=== PATIENT | female | born 1935 | race Caucasian/White ===

== ENCOUNTER 2017-11-05 12:02 | Inpatient (IN) | payer MEDICARE, OTHER, SELFPAY ==
[2017-11-05] VITALS (19 sets, daily range): BP systolic 112–179; BP diastolic 58–113; PULSE 59–88; RESP 14–20; TEMP 36.2–37.1; O2SAT 92–100; BMI 21.6
--- NOTE | 2017-11-05 12:54 | PC.NURSE ---
Pt has significant bruising to L posterior especially behind knee and thigh. LE, Left lateral thigh is warm and hard and very tender to light touch. Pt's daughter states swelling to extremety is unchanged since visit to the ER.
--- NOTE | 2017-11-05 12:57 | ED.LOWEXIN ---
HPI - Extremity Injury (Lower) <IBAN Carey - Last Filed: 11/05/17 22:51> General Chief Complaint: Extremity Injury, Lower Stated Complaint: STATES CELLULITIS LEFT THIGH Time Seen by Provider: 11/05/17 12:56 History of Present Illness HPI Narrative: 82-year-old female here for complaint of pain into her left thigh area over the past 6 days approximately. She was seen and emergency room at last week for same symptoms and was diagnosed with cellulitis. Ultrasound was obtained of the lower extremity at that visit and was negative for DVT. She has been taking Keflex as prescribed for the cellulitis. She is back to the emergency room today as symptoms have not resolved and increasing pain into the left thigh area over the past 24 hr. No known trauma to the left thigh. Increased pain with motion and palpation of the left thigh. They do report having some bruising to the left thigh. Patient does take Coumadin due to a history of atrial fibrillation. She states that her INR is normally around 3 which is therapeutic for her. She denies any shortness of breath no chest pain. No other concerns or complaints. Related Data Home Medications Medication Instructions Recorded Confirmed atorvastatin 20 mg PO QPM 11/05/17 11/05/17 cephalexin 500 mg PO QID 11/05/17 11/05/17 hydrocodone-acetaminophen 1 tab PO Q6H PRN 11/05/17 11/05/17 sertraline 100 mg PO QPM 11/05/17 11/05/17 warfarin [Jantoven] 2.5 mg PO QPM 11/05/17 11/05/17 Allergies Allergy/AdvReac Type Severity Reaction Status Date / Time diltiazem [DILTIAZEM] Allergy Severe Rash Verified 11/05/17 12:21 Review of Systems <IBAN Carey - Last Filed: 11/05/17 22:51> Constitutional Denies chills, Denies fever(s), Denies lethargy and Denies weakness Eyes Denies change in vision, Denies eye discharge, Denies irritation and Denies loss of vision ENT Ears, Nose, Mouth, and Throat: Denies change in voice, Denies neck pain and Denies sore throat Cardiovascular Denies chest pain, Denies irregular heart rhythm, Denies lightheadedness, Denies palpitations, Denies dyspnea, Denies dyspnea on exertion and Denies orthopnea Respiratory Denies cough, Denies dyspnea, Denies dyspnea on exertion and Denies wheezing Gastrointestinal Gastrointestinal: Denies abdominal pain, Denies change in bowel habits, Denies diarrhea, Denies nausea and Denies vomiting Genitourinary Denies hematuria, Denies flank pain, Denies urinary incontinence and Denies urinary urgency Musculoskeletal Denies neck pain Comments: Left thigh pain and bruising Integumentary/Breasts Denies pruritus, Denies erythema, Denies rash and Denies wounds Neurologic Denies confusion, Denies loss of vision and Denies weakness Psychiatric Denies anxiety, Denies confusion, Denies depression, Denies homicidal ideation and Denies suicidal ideation Endocrine Denies palpitations Hematologic/Lymphatic Denies easy bruising Allergic/Immunologic Denies wheezing Exam <IBAN Carey - Last Filed: 11/05/17 22:51> Initial Vital Signs Initial Vital Signs: Vital Signs Pulse Rate 59 L 11/05/17 12:21 Respiratory Rate 16 11/05/17 12:21 Blood Pressure 112/58 L 11/05/17 12:21 Pulse Oximetry 95 11/05/17 12:21 Const General: cooperative and well developed Nutritional Appearance: well nourished Orientation: alert, awake and not confused [facility] Mouth: oral mucosae normal and oropharynx normal Eyes General: appearance normal, both eyes and all related structures Conjunctivae: conjunctivae normal Sclera: sclerae normal Pupils: PERRL Resp Effort & Inspection: normal respiratory effort, able to speak in complete sentences, no respiratory distress and no use of accessory muscles Auscultation: clear to auscultation bilaterally, no rales, no rhonchi and no wheezes Cardio Rate: regular rate Rhythm: regular rhythm Heart Sounds: no click, no gallops, no murmurs and no rubs Pulses: normal peripheral pulses Skin General: no rashes or lesions noted, No jaundice and No petechiae Extrem Other: Right thigh is swollen with ecchymosis along the posterior aspect of the left thigh into the popliteal area. Distal sensation is intact. Distal pulses are intact. Distal range of motion is intact. Anterior thigh is firm on palpation. No erythema. No rash. <Guille Cuadra DO - Last Filed: 11/06/17 07:04> Initial Vital Signs Initial Vital Signs: Vital Signs Pulse Rate 59 L 11/05/17 12:21 Respiratory Rate 16 11/05/17 12:21 Blood Pressure 112/58 L 11/05/17 12:21 Pulse Oximetry 95 11/05/17 12:21 Course <IBAN Carey - Last Filed: 11/05/17 22:51> Orders Ordered: ED Orders 11/05/17 22:55 Consult to Discharge Planning Routine Consult to Physical Therapy Evaluate & Treat Consult to Respiratory Therapy Evaluate & Treat Creatine Kinase Stat Hemoglobin and Hematocrit Stat Lactate (Lactic Acid) Stat Prothrombin Time INR Stat Acetaminophen (Tylenol) 650 mg PO Q4H PRN PRN Reason: As Needed For CARDOZO/Moderate Pain Atorvastatin Calcium (Lipitor) 20 mg PO QPM [facility] Diphenhydramine HCl (Benadryl) 25 mg IV Q6H PRN PRN Reason: erythema, urticaria, pruritis Docusate Sodium (Colace) 100 mg PO BID [facility] Last Admin: 11/05/17 23:18 Dose: Not Given Hydromorphone HCl (Dilaudid) 0.5 mg IV Q1H PRN PRN Reason: Pain, Mild (1-3) Last Admin: 11/06/17 06:59 Dose: 0.5 mg Admin: 11/06/17 04:22 Dose: 0.5 mg Admin: 11/05/17 23:11 Dose: 0.5 mg Cefazolin Sodium/Dextrose (Ancef) 2 gm in 100 mls @ 200 mls/hr IV Q8H [facility] Stop: 11/06/17 12:59 Last Infusion: 11/06/17 05:44 Dose: 200 mls/hr Admin: 11/06/17 04:21 Dose: 200 mls/hr Sodium Chloride (Normal Saline 0.9%) 1,000 mls @ 84 mls/hr IV CONT [facility] Last Admin: 11/05/17 23:09 Dose: 84 mls/hr Ondansetron HCl (Zofran Odt) 4 mg PO Q4H PRN PRN Reason: Nausea And Vomiting Ondansetron HCl (Zofran) 4 mg IV Q4H PRN PRN Reason: Nausea And Vomiting Oxycodone HCl (Percolone) 5 mg PO Q3H PRN PRN Reason: Pain, Moderate (4-6) Last Admin: 11/06/17 01:52 Dose: 5 mg Sertraline HCl (Zoloft) 100 mg PO QPM [facility] Discontinued Medications Hydrocodone Bitart/Acetaminophen (Thompson 10/325) 1 tab PO NOW ONE Stop: 11/05/17 14:51 Last Admin: 11/05/17 15:30 Dose: 1 tab Sodium Chloride 3,000 ml/ (Gentamicin Sulfate 240 mg) 0 ml IRR NOW ONE Stop: 11/05/17 21:45 Last Admin: 11/05/17 21:46 Dose: 6,000 ml Fentanyl (Sublimaze) 50 mcg IV Q5MIN PRN PRN Reason: Pain, Moderate (4-6) Hydromorphone HCl (Dilaudid) 0.5 mg IV NOW ONE Stop: 11/05/17 20:04 Hydromorphone HCl (Dilaudid) 0.25 mg IV Q5MIN PRN PRN Reason: Pain, Severe (7-10) Sodium Chloride (Normal Saline 0.9%) 1,000 mls @ 150 mls/hr IV CONT [facility] Last Admin: 11/05/17 17:34 Dose: 150 mls/hr Phytonadione 5 mg/ Dextrose 50.5 mls @ 101 mls/hr IV NOW ONE Stop: 11/05/17 15:44 Last Infusion: 11/05/17 17:19 Dose: 0 mls/hr Admin: 11/05/17 16:35 Dose: 101 mls/hr Sodium Chloride (Normal Saline 0.9%) 1,000 mls @ 42 mls/hr IV CONT [facility] Last Infusion: 11/05/17 22:55 Dose: 0 mls/hr Admin: 11/05/17 20:20 Dose: 42 mls/hr Cefazolin Sodium/Dextrose (Ancef) 2 gm in 100 mls @ 200 mls/hr IV NOW ONE Stop: 11/05/17 22:13 Last Infusion: 11/05/17 20:40 Dose: 0 mls/hr Admin: 11/05/17 20:34 Dose: 200 mls/hr Cefazolin Sodium/Dextrose (Ancef) 2 gm in 100 mls @ 200 mls/hr IV NOW ONE Stop: 11/05/17 22:28 Ondansetron HCl (Zofran) 4 mg IV NOW PRN PRN Reason: Nausea And Vomiting Vital Signs - 8 hr 11/05/17 23:10 06/26/18 23:45 11/06/17 00:45 Temperature 98.8 F 98.5 F 98.2 F Pulse Rate 74 62 61 Respiratory Rate 18 18 18 Blood Pressure 158/84 H 138/75 H 133/63 H Pulse Oximetry 98 100 100 11/06/17 01:39 11/06/17 01:40 11/06/17 04:20 Temperature 98 F 98 F 98.9 F Pulse Rate 63 63 61 Respiratory Rate 12 12 20 Blood Pressure 141/70 H 141/70 H 148/93 H Pulse Oximetry 97 11/06/17 04:30 11/06/17 05:18 11/06/17 05:34 Temperature 98.9 F 98.2 F 97.8 F Pulse Rate 61 64 61 Respiratory Rate 20 18 14 Blood Pressure 156/75 H 164/58 H Pulse Oximetry 96 <Guille Cuadra DO - Last Filed: 11/06/17 07:04> Orders Ordered: ED Orders 11/05/17 22:55 Consult to Discharge Planning Routine Consult to Physical Therapy Evaluate & Treat Consult to Respiratory Therapy Evaluate & Treat Creatine Kinase Stat Hemoglobin and Hematocrit Stat Lactate (Lactic Acid) Stat Prothrombin Time INR Stat Acetaminophen (Tylenol) 650 mg PO Q4H PRN PRN Reason: As Needed For CARDOZO/Moderate Pain Atorvastatin Calcium (Lipitor) 20 mg PO QPM [facility] Diphenhydramine HCl (Benadryl) 25 mg IV Q6H PRN PRN Reason: erythema, urticaria, pruritis Docusate Sodium (Colace) 100 mg PO BID [facility] Last Admin: 11/05/17 23:18 Dose: Not Given Hydromorphone HCl (Dilaudid) 0.5 mg IV Q1H PRN PRN Reason: Pain, Mild (1-3) Last Admin: 11/06/17 06:59 Dose: 0.5 mg Admin: 11/06/17 04:22 Dose: 0.5 mg Admin: 11/05/17 23:11 Dose: 0.5 mg Cefazolin Sodium/Dextrose (Ancef) 2 gm in 100 mls @ 200 mls/hr IV Q8H [facility] Stop: 11/06/17 12:59 Last Infusion: 11/06/17 05:44 Dose: 200 mls/hr Admin: 11/06/17 04:21 Dose: 200 mls/hr Sodium Chloride (Normal Saline 0.9%) 1,000 mls @ 84 mls/hr IV CONT [facility] Last Admin: 11/05/17 23:09 Dose: 84 mls/hr Ondansetron HCl (Zofran Odt) 4 mg PO Q4H PRN PRN Reason: Nausea And Vomiting Ondansetron HCl (Zofran) 4 mg IV Q4H PRN PRN Reason: Nausea And Vomiting Oxycodone HCl (Percolone) 5 mg PO Q3H PRN PRN Reason: Pain, Moderate (4-6) Last Admin: 11/06/17 01:52 Dose: 5 mg Sertraline HCl (Zoloft) 100 mg PO QPM [facility] Discontinued Medications Hydrocodone Bitart/Acetaminophen (Thompson 10/325) 1 tab PO NOW ONE Stop: 11/05/17 14:51 Last Admin: 11/05/17 15:30 Dose: 1 tab Sodium Chloride 3,000 ml/ (Gentamicin Sulfate 240 mg) 0 ml IRR NOW ONE Stop: 11/05/17 21:45 Last Admin: 11/05/17 21:46 Dose: 6,000 ml Fentanyl (Sublimaze) 50 mcg IV Q5MIN PRN PRN Reason: Pain, Moderate (4-6) Hydromorphone HCl (Dilaudid) 0.5 mg IV NOW ONE Stop: 11/05/17 20:04 Hydromorphone HCl (Dilaudid) 0.25 mg IV Q5MIN PRN PRN Reason: Pain, Severe (7-10) Sodium Chloride (Normal Saline 0.9%) 1,000 mls @ 150 mls/hr IV CONT [facility] Last Admin: 11/05/17 17:34 Dose: 150 mls/hr Phytonadione 5 mg/ Dextrose 50.5 mls @ 101 mls/hr IV NOW ONE Stop: 11/05/17 15:44 Last Infusion: 11/05/17 17:19 Dose: 0 mls/hr Admin: 11/05/17 16:35 Dose: 101 mls/hr Sodium Chloride (Normal Saline 0.9%) 1,000 mls @ 42 mls/hr IV CONT [facility] Last Infusion: 11/05/17 22:55 Dose: 0 mls/hr Admin: 11/05/17 20:20 Dose: 42 mls/hr Cefazolin Sodium/Dextrose (Ancef) 2 gm in 100 mls @ 200 mls/hr IV NOW ONE Stop: 11/05/17 22:13 Last Infusion: 11/05/17 20:40 Dose: 0 mls/hr Admin: 11/05/17 20:34 Dose: 200 mls/hr Cefazolin Sodium/Dextrose (Ancef) 2 gm in 100 mls @ 200 mls/hr IV NOW ONE Stop: 11/05/17 22:28 Ondansetron HCl (Zofran) 4 mg IV NOW PRN PRN Reason: Nausea And Vomiting Vital Signs - 8 hr 11/05/17 23:10 11/05/17 23:45 11/06/17 00:45 Temperature 98.8 F 98.5 F 98.2 F Pulse Rate 74 62 61 Respiratory Rate 18 18 18 Blood Pressure 158/84 H 138/75 H 133/63 H Pulse Oximetry 98 100 100 11/06/17 01:39 11/06/17 01:40 11/06/17 04:20 Temperature 98 F 98 F 98.9 F Pulse Rate 63 63 61 Respiratory Rate 12 12 20 Blood Pressure 141/70 H 141/70 H 148/93 H Pulse Oximetry 97 11/06/17 04:30 11/06/17 05:18 11/06/17 05:34 Temperature 98.9 F 98.2 F 97.8 F Pulse Rate 61 64 61 Respiratory Rate 20 18 14 Blood Pressure 156/75 H 164/58 H Pulse Oximetry 96 MDM - Extremity Injury (Lower) <IBAN Carey - Last Filed: 11/05/17 22:51> Lab Data Result diagrams: 11/06/17 00:22 11/05/17 13:47 Lab Results 11/05/17 11/05/17 11/05/17 Range/Units 13:47 13:47 13:47 WBC 6.2 (4.5-11.0) X10^3/uL RBC 2.85 L (4.0-5.2) X10^6/uL Hgb 9.4 L (12.0-16.0) g/dL Hct 27.7 L (36-46) % MCV 97.1 (80-100) fL MCH 33.1 (26-34) PG MCHC 34.1 (30-36) % RDW 15.0 H (11.6-14.8) % Plt Count 375 (150-400) X10^3/uL Neut % (Auto) 81.6 H (50-75) % Lymph % (Auto) 11.0 L (25-40) % [place] % (Auto) 6.5 (3-14) % Eos % (Auto) 0.2 L (2-4) % Baso % (Auto) 0.7 (0-2) % Neut # (Auto) 5000 (0597-3746) /uL PT 28.3 H (10.1-12.7) SECONDS INR 2.6 H (0.9-1.3) Sodium 139 (137-145) mmol/L Potassium 4.2 (3.4-5.1) mmol/L Chloride 101 (98-107) mmol/L Carbon Dioxide 29 (22-32) mmol/L BUN 13 (7-17) mg/dL Creatinine 0.60 (0.52-1.04) mg/dL Estimated GFR > 60.0 (>60) mL/min BUN/Creatinine Ratio 21.7 (6-22) Glucose 97 (80-110) mg/dL Lactate (0.7-2.1) mmol/L Calcium 8.7 (8.4-10.2) mg/dL Total Bilirubin 0.8 (0.2-1.3) mg/dL AST 21 (14-36) IU/L ALT 23 (9-52) IU/L Alkaline Phosphatase 51 (38-126) U/L Total Creatine Kinase (30-135) U/L Total Protein 6.7 (6.3-8.2) g/dL Albumin 3.9 (3.5-5.0) g/dL Globulin 2.8 (1.7-4.1) g/dL Albumin/Globulin Ratio 1.4 (1.0-2.8) Blood Type Antibody Screen Crossmatch 11/05/17 11/05/17 11/06/17 Range/Units 17:44 17:44 00:22 WBC 6.4 (4.5-11.0) X10^3/uL RBC 2.62 L (4.0-5.2) X10^6/uL Hgb 8.7 L 6.9 L* (12.0-16.0) g/dL Hct 25.4 L 20.4 L* (36-46) % MCV 96.8 (80-100) fL MCH 33.0 (26-34) PG MCHC 34.1 (30-36) % RDW 15.1 H (11.6-14.8) % Plt Count 355 (150-400) X10^3/uL Neut % (Auto) 78.0 H (50-75) % Lymph % (Auto) 13.7 L (25-40) % [place] % (Auto) 7.4 (3-14) % Eos % (Auto) 0.4 L (2-4) % Baso % (Auto) 0.5 (0-2) % Neut # (Auto) 5000 (8080-8748) /uL PT (10.1-12.7) SECONDS INR (0.9-1.3) Sodium (137-145) mmol/L Potassium (3.4-5.1) mmol/L Chloride (98-107) mmol/L Carbon Dioxide (22-32) mmol/L BUN (7-17) mg/dL Creatinine (0.52-1.04) mg/dL Estimated GFR (>60) mL/min BUN/Creatinine Ratio (6-22) Glucose (80-110) mg/dL Lactate (0.7-2.1) mmol/L Calcium (8.4-10.2) mg/dL Total Bilirubin (0.2-1.3) mg/dL AST (14-36) IU/L ALT (9-52) IU/L Alkaline Phosphatase (38-126) U/L Total Creatine Kinase (30-135) U/L Total Protein (6.3-8.2) g/dL Albumin (3.5-5.0) g/dL Globulin (1.7-4.1) g/dL Albumin/Globulin Ratio (1.0-2.8) Blood Type A Positive Antibody Screen Negative Crossmatch See Detail 11/06/17 11/06/17 11/06/17 Range/Units 00:22 00:22 00:22 WBC (4.5-11.0) X10^3/uL RBC (4.0-5.2) X10^6/uL Hgb (12.0-16.0) g/dL Hct (36-46) % MCV (80-100) fL MCH (26-34) PG MCHC (30-36) % RDW (11.6-14.8) % Plt Count (150-400) X10^3/uL Neut % (Auto) (50-75) % Lymph % (Auto) (25-40) % [place] % (Auto) (3-14) % Eos % (Auto) (2-4) % Baso % (Auto) (0-2) % Neut # (Auto) (2287-5964) /uL PT 15.8 H D (10.1-12.7) SECONDS INR 1.5 H (0.9-1.3) Sodium (137-145) mmol/L Potassium (3.4-5.1) mmol/L Chloride (98-107) mmol/L Carbon Dioxide (22-32) mmol/L BUN (7-17) mg/dL Creatinine (0.52-1.04) mg/dL Estimated GFR (>60) mL/min BUN/Creatinine Ratio (6-22) Glucose (80-110) mg/dL Lactate 0.8 (0.7-2.1) mmol/L Calcium (8.4-10.2) mg/dL Total Bilirubin (0.2-1.3) mg/dL AST (14-36) IU/L ALT (9-52) IU/L Alkaline Phosphatase (38-126) U/L Total Creatine Kinase 130 (30-135) U/L Total Protein (6.3-8.2) g/dL Albumin (3.5-5.0) g/dL Globulin (1.7-4.1) g/dL Albumin/Globulin Ratio (1.0-2.8) Blood Type Antibody Screen Crossmatch Imaging Data Extremity ultrasound: Radiologist's impression: ADDENDUM This report includes an Addendum and supersedes previous reports for this exam. PROCEDURE: US PERIPH VENOUS LOW EXTREM LT INDICATIONS: Pain swelling to left lower extremity TECHNIQUE: Real-time imaging, as well as color and pulse Doppler interrogation, were performed of the lower extremity deep veins from the inguinal ligament to the popliteal fossa. COMPARISON: None. FINDINGS: The deep veins are normally compressible, and free of intraluminal thrombus. Color and pulse Doppler demonstrate normal phasic intraluminal flow. There is normal augmentation response to distal compression maneuver. IMPRESSION: No deep venous thrombosis. Dictated by: Amy Hicks M.D. on 11/05/2017 at 14:19 Approved by: Amy Hicks M.D. on 11/05/2017 at 14:21 ADDENDUM: COMPARISON: [facility], , XR FEMUR LT MIN 2V, 11/05/2017, 12:57. The patient was brought back for additional scanning due to clinical concern for hematoma formation. At the site of medial thigh ecchymosis, no hematoma is identified. Within the lateral and anterior thigh, a large hypoechoic lesion measures at least 10 x 9 cm, demonstrating no internal vascular flow on color Doppler interrogation. Findings would be consistent with a large intramuscular or intermuscular hematoma of uncertain etiology. Dictated by: Tyshawn Hillman M.D. on 11/05/2017 at 15:40 Approved by: Tyshawn Hillman M.D. on 11/05/2017 at 15:43 Addendum Dictated By: Tyshawn Hillman MD Addendum Signed By: Addendum Cosigned By: DD/ TD/TT: 11/05/17 PROCEDURE: US PERIPH VENOUS LOW EXTREM LT INDICATIONS: Pain swelling to left lower extremity TECHNIQUE: Real-time imaging, as well as color and pulse Doppler interrogation, were performed of the lower extremity deep veins from the inguinal ligament to the popliteal fossa. COMPARISON: None. FINDINGS: The deep veins are normally compressible, and free of intraluminal thrombus. Color and pulse Doppler demonstrate normal phasic intraluminal flow. There is normal augmentation response to distal compression maneuver. IMPRESSION: No deep venous thrombosis. Dictated by: Amy Hicks M.D. on 11/05/2017 at 14:19 Approved by: Amy Hicks M.D. on 11/05/2017 at 14:21 Left femur : Radiologist's impression: PROCEDURE: XR FEMUR LT MIN 2V INDICATIONS: 82 year-old female with left thigh pain and ecchymosis. TECHNIQUE: 4 views of the femur were acquired. COMPARISON: None. FINDINGS: Bones: Left hip arthroplasty hardware is intact and in expected positions. No fractures or dislocations. No suspicious bony lesions. Soft tissues: No suspicious soft tissue calcifications or masses. There is widespread superficial femoral artery atherosclerosis. IMPRESSION: No acute bony injuries of the left femur. Dictated by: Tyshawn Hillman M.D. on 11/05/2017 at 13:45 Approved by: Tyshawn Hillman M.D. on 11/05/2017 at 13:47 MDM Narrative Medical decision making narrative: X-ray of the left femur was obtained was negative for any acute findings. Ultrasound of left lower extremity was negative for DVT however with further investigation and shows large hematoma to the left lateral thigh. INR was at 2.8. No known trauma to the left thigh. Unknown etiology for the cause of a hematoma. Discussed case with Orthopedics due to the amount of pain patient is having and due to the firmness of the leg to ensure that there is no compartment syndrome . Orthopedics came in to evaluate the patient and is taking patient to the OR this evening for further evaluation. Patient is admitted to the hospital via hospitalist after OR <Guille Cuadra DO - Last Filed: 11/06/17 07:04> Lab Data Lab Results 11/05/17 11/05/17 11/05/17 Range/Units 13:47 13:47 13:47 WBC 6.2 (4.5-11.0) X10^3/uL RBC 2.85 L (4.0-5.2) X10^6/uL Hgb 9.4 L (12.0-16.0) g/dL Hct 27.7 L (36-46) % MCV 97.1 (80-100) fL MCH 33.1 (26-34) PG MCHC 34.1 (30-36) % RDW 15.0 H (11.6-14.8) % Plt Count 375 (150-400) X10^3/uL Neut % (Auto) 81.6 H (50-75) % Lymph % (Auto) 11.0 L (25-40) % [place] % (Auto) 6.5 (3-14) % Eos % (Auto) 0.2 L (2-4) % Baso % (Auto) 0.7 (0-2) % Neut # (Auto) 5000 (3271-6321) /uL PT 28.3 H (10.1-12.7) SECONDS INR 2.6 H (0.9-1.3) Sodium 139 (137-145) mmol/L Potassium 4.2 (3.4-5.1) mmol/L Chloride 101 (98-107) mmol/L Carbon Dioxide 29 (22-32) mmol/L BUN 13 (7-17) mg/dL Creatinine 0.60 (0.52-1.04) mg/dL Estimated GFR > 60.0 (>60) mL/min BUN/Creatinine Ratio 21.7 (6-22) Glucose 97 (80-110) mg/dL Lactate (0.7-2.1) mmol/L Calcium 8.7 (8.4-10.2) mg/dL Total Bilirubin 0.8 (0.2-1.3) mg/dL AST 21 (14-36) IU/L ALT 23 (9-52) IU/L Alkaline Phosphatase 51 (38-126) U/L Total Creatine Kinase (30-135) U/L Total Protein 6.7 (6.3-8.2) g/dL Albumin 3.9 (3.5-5.0) g/dL Globulin 2.8 (1.7-4.1) g/dL Albumin/Globulin Ratio 1.4 (1.0-2.8) Blood Type Antibody Screen Crossmatch 11/05/17 11/05/17 11/06/17 Range/Units 17:44 17:44 00:22 WBC 6.4 (4.5-11.0) X10^3/uL RBC 2.62 L (4.0-5.2) X10^6/uL Hgb 8.7 L 6.9 L* (12.0-16.0) g/dL Hct 25.4 L 20.4 L* (36-46) % MCV 96.8 (80-100) fL MCH 33.0 (26-34) PG MCHC 34.1 (30-36) % RDW 15.1 H (11.6-14.8) % Plt Count 355 (150-400) X10^3/uL Neut % (Auto) 78.0 H (50-75) % Lymph % (Auto) 13.7 L (25-40) % [place] % (Auto) 7.4 (3-14) % Eos % (Auto) 0.4 L (2-4) % Baso % (Auto) 0.5 (0-2) % Neut # (Auto) 5000 (4247-5105) /uL PT (10.1-12.7) SECONDS INR (0.9-1.3) Sodium (137-145) mmol/L Potassium (3.4-5.1) mmol/L Chloride (98-107) mmol/L Carbon Dioxide (22-32) mmol/L BUN (7-17) mg/dL Creatinine (0.52-1.04) mg/dL Estimated GFR (>60) mL/min BUN/Creatinine Ratio (6-22) Glucose (80-110) mg/dL Lactate (0.7-2.1) mmol/L Calcium (8.4-10.2) mg/dL Total Bilirubin (0.2-1.3) mg/dL AST (14-36) IU/L ALT (9-52) IU/L Alkaline Phosphatase (38-126) U/L Total Creatine Kinase (30-135) U/L Total Protein (6.3-8.2) g/dL Albumin (3.5-5.0) g/dL Globulin (1.7-4.1) g/dL Albumin/Globulin Ratio (1.0-2.8) Blood Type A Positive Antibody Screen Negative Crossmatch See Detail 11/06/17 11/06/17 11/06/17 Range/Units 00:22 00:22 00:22 WBC (4.5-11.0) X10^3/uL RBC (4.0-5.2) X10^6/uL Hgb (12.0-16.0) g/dL Hct (36-46) % MCV (80-100) fL MCH (26-34) PG MCHC (30-36) % RDW (11.6-14.8) % Plt Count (150-400) X10^3/uL Neut % (Auto) (50-75) % Lymph % (Auto) (25-40) % [place] % (Auto) (3-14) % Eos % (Auto) (2-4) % Baso % (Auto) (0-2) % Neut # (Auto) (6732-4916) /uL PT 15.8 H D (10.1-12.7) SECONDS INR 1.5 H (0.9-1.3) Sodium (137-145) mmol/L Potassium (3.4-5.1) mmol/L Chloride (98-107) mmol/L Carbon Dioxide (22-32) mmol/L BUN (7-17) mg/dL Creatinine (0.52-1.04) mg/dL Estimated GFR (>60) mL/min BUN/Creatinine Ratio (6-22) Glucose (80-110) mg/dL Lactate 0.8 (0.7-2.1) mmol/L Calcium (8.4-10.2) mg/dL Total Bilirubin (0.2-1.3) mg/dL AST (14-36) IU/L ALT (9-52) IU/L Alkaline Phosphatase (38-126) U/L Total Creatine Kinase 130 (30-135) U/L Total Protein (6.3-8.2) g/dL Albumin (3.5-5.0) g/dL Globulin (1.7-4.1) g/dL Albumin/Globulin Ratio (1.0-2.8) Blood Type Antibody Screen Crossmatch Discharge Plan Departure Patient Disposition: Admitted As Inpatient Clinical Impression: Hematoma of left thigh Discharge Date/Time: 11/05/17 20:15 Interventions: ED Discharge Assessment Last Done: 11/05/17 20:29 Admit Date/Time: 11/05/17 20:12 Admit Provider: Eduin Hogan <Guille Cuadra DO - Last Filed: 11/06/17 07:04> Cosign ED Attending René Attestation: I was available for consultation during this patient's emergency department encounter
--- NOTE | 2017-11-05 13:16 | DI.US.S_ITS ---
PROCEDURE: US PERIPH VENOUS LOW EXTREM LT INDICATIONS: Pain swelling to left lower extremity TECHNIQUE: Real-time imaging, as well as color and pulse Doppler interrogation, were performed of the lower extremity deep veins from the inguinal ligament to the popliteal fossa. COMPARISON: None. FINDINGS: The deep veins are normally compressible, and free of intraluminal thrombus. Color and pulse Doppler demonstrate normal phasic intraluminal flow. There is normal augmentation response to distal compression maneuver. IMPRESSION: No deep venous thrombosis. Dictated by: Amy Hicks M.D. on 11/05/2017 at 14:19 Approved by: Amy Hicks M.D. on 11/05/2017 at 14:21
--- NOTE | 2017-11-05 13:16 | DI.RAD.S_ITS ---
PROCEDURE: XR FEMUR LT MIN 2V INDICATIONS: 82 year-old female with left thigh pain and ecchymosis. TECHNIQUE: 4 views of the femur were acquired. COMPARISON: None. FINDINGS: Bones: Left hip arthroplasty hardware is intact and in expected positions. No fractures or dislocations. No suspicious bony lesions. Soft tissues: No suspicious soft tissue calcifications or masses. There is widespread superficial femoral artery atherosclerosis. IMPRESSION: No acute bony injuries of the left femur. Dictated by: Tyshawn Hillman M.D. on 11/05/2017 at 13:45 Approved by: Tyshawn Hillman M.D. on 11/05/2017 at 13:47
[2017-11-05 13:55] LABS: Add Manual Diff / Slide Review NO; Basophils Percent Auto 0.7 % (0-2); Eosinophils Percent Auto 0.2 % (2-4); Hematocrit 27.7 % (36-46); Hemoglobin 9.4 g/dL (12.0-16.0); Mean Corpuscular HGB Conc 34.1 % (30-36); Mean Corpuscular Hemoglobin 33.1 PG (26-34); Mean Corpuscular Volume 97.1 fL (80-100); Monocytes Percent Auto 6.5 % (3-14); Neutrophils Absolute Auto 5000 /uL (3000-5900); Neutrophils Percent Auto 81.6 % (50-75); Platelet Count 375 X10^3/uL (150-400); Red Blood Cell Count 2.85 X10^6/uL (4.0-5.2); White Blood Cell Count 6.2 X10^3/uL (4.5-11.0)
[2017-11-05 14:02] LABS: INR 2.6 (0.9-1.3); Prothrombin Time 28.3 SECONDS (10.1-12.7)
[2017-11-05 14:07] LABS: Alanine Aminotransferase 23 IU/L (9-52); Albumin 3.9 g/dL (3.5-5.0); Albumin Globulin Ratio 1.4 (1.0-2.8); Alkaline Phosphatase 51 U/L (38-126); Aspartate Aminotransferase 21 IU/L (14-36); BUN Creatinine Ratio 21.7 (6-22); Bilirubin Total 0.8 mg/dL (0.2-1.3); Blood Urea Nitrogen 13 mg/dL (7-17); Calcium 8.7 mg/dL (8.4-10.2); Carbon Dioxide 29 mmol/L (22-32); Chloride 101 mmol/L (98-107); Estimated Glomerular Filt Rate > 60.0 mL/min (>60); Globulin 2.8 g/dL (1.7-4.1); Glucose 97 mg/dL (80-110); HEMOLYSIS < 15 (0-50); Potassium 4.2 mmol/L (3.4-5.1); Sodium 139 mmol/L (137-145); Total Protein 6.7 g/dL (6.3-8.2)
[2017-11-05] MEDS: HYDROCODONE/ACET 10/325 TABLET 1 TAB PO (15:30)
[2017-11-05] MEDS: PHYTONADIONE (VIT K1) 5 MG in DEXTROSE 5 % IN WATER 50 ML 101 ML IV (16:35)
[2017-11-05] MEDS: SODIUM CHLORIDE 0.9% 1,000 ML 150 ML IV (17:34)
[2017-11-05 17:59] LABS: Add Manual Diff / Slide Review NO; Basophils Percent Auto 0.5 % (0-2); Eosinophils Percent Auto 0.4 % (2-4); Hematocrit 25.4 % (36-46); Hemoglobin 8.7 g/dL (12.0-16.0); Lymphocytes Percent Auto 13.7 % (25-40); Mean Corpuscular HGB Conc 34.1 % (30-36); Mean Corpuscular Volume 96.8 fL (80-100); Monocytes Percent Auto 7.4 % (3-14); Neutrophils Absolute Auto 5000 /uL (3000-5900); Platelet Count 355 X10^3/uL (150-400); Red Blood Cell Count 2.62 X10^6/uL (4.0-5.2); Red Cell Distribution Width 15.1 % (11.6-14.8); White Blood Cell Count 6.4 X10^3/uL (4.5-11.0)
--- NOTE | 2017-11-05 18:57 | PM.HP.1 ---
History of Present Illness Date Patient Seen: 11/05/17 Time Patient Seen: 18:00 Chief complaint: STATES CELLULITIS LEFT THIGH Narrative: The patient is an 82-year-old female with a history of sick sinus syndrome with a pacemaker and on Coumadin with a goal of 2.5-3. And a remote history of a left total hip. She was at a nursing facility down in [place] and receives most of her care at [facility]. Today she presents to our hospital brought in by her daughter who lives in the local area. Patient is complaining of left thigh swelling ecchymosis and pain. The patient denies any recent trauma. She states her pain has increased over the last day as well as the size of the thigh. And ecchymosis has increased over the course of the day. Of note she has also been treated for suppose it is cellulitis of the left thigh for several days at her longterm. The patient states she has had increased pain and swelling and tenderness to palpation of the anterior lateral left thigh she has noticed ecchymosis over the anterior lateral posterior thigh and down into the lower leg. She denies any numbness or tingling. She denies any fevers chills nausea or vomiting. Her only medical allergies still diltiazem. Rest makes the pain better trying to flex or extend the knee and creates pain along the anterior and lateral thigh. Patient History Medical History Sick sinus syndrome (Acute) Surgical History History of total left hip arthroplasty (Acute) Family & Social History Family History: Reviewed 11/05/17 by Vale Shelby MD Family history unavailable: No Social History: Lives at nursing facility in [place]. Received medical care at [facility]. Daughter with her today lives in [place] Tobacco & Substance use: Nonsmoker Meds Home Medications Medication Instructions Recorded Confirmed Type atorvastatin 20 mg PO QPM 11/05/17 11/05/17 History cephalexin 500 mg PO QID 11/05/17 11/05/17 History hydrocodone-acetaminophen 1 tab PO Q6H PRN 11/05/17 11/05/17 History sertraline 100 mg PO QPM 11/05/17 11/05/17 History warfarin [Jantoven] 2.5 mg PO QPM 11/05/17 11/05/17 History Allergies Allergy/AdvReac Type Severity Reaction Status Date / Time diltiazem [DILTIAZEM] Allergy Severe Rash Verified 11/05/17 12:21 Review of Systems Review of Systems Patient denies fevers chills numbness tingling nausea or vomiting. She does have a history of headaches but these have not been bad recently. She denies any recent falls. She does endorse musculoskeletal complaints with swelling to the left thigh please see the HPI. Otherwise review of systems negative except for history of pacemaker placement due to bradycardia/sick sinus Exam Vital Signs (past 8 hours): - 11/05/17 12:21 11/05/17 13:43 11/05/17 15:43 Temperature 97.6 F Pulse Rate 59 L 60 61 Respiratory Rate 16 16 18 Blood Pressure 112/58 L Blood Pressure [Left Arm] 140/61 H 144/68 H Pulse Oximetry 95 100 99 11/05/17 16:51 11/05/17 18:01 Temperature 97.9 F Pulse Rate 61 79 Respiratory Rate 18 16 Blood Pressure Blood Pressure [Left Arm] 143/71 H 140/70 H Pulse Oximetry 98 99 Oxygen Delivery Method Room Air Narrative Exam Narrative: Patient is alert and oriented to time place and person and in no acute distress evaluated in the emergency room. Her daughter is present with her. HEENT : Normocephalic atraumatic Respiratory examination: Lungs clear to auscultation bilaterally Cardiac exam: Regular rate and rhythm Abdomen: Soft nontender Musculoskeletal examination: Bilateral upper extremities: Full range of motion and no tenderness to palpation. No obvious deformity. Sensation intact to light touch median radial ulnar nerves. Palpable radial pulses Right lower extremity examination: Soft compartments of the thigh and lower extremity. 5/5 dorsiflexion plantar flexion of the ankle. Full range of motion of the knee 5/5 strength knee flexion and extension. Sensation intact to light touch superficial peroneal deep peroneal sural and saphenous nerve distributions Left lower extremity examination: Medial and posterior compartments grossly compressible. Anterior compartment with obvious swelling and thigh girth is much larger than contralateral side. No shiny appearance of skin. Compartment is compressible but there is tenderness on palpation and compression of the anterior compartment. The location of the large hematoma evaluated on ultrasound has been marked on the thigh approximately 10 cm in length. Patient is able to demonstrate a very limited knee flexion and extension but notes increased pain in the anterior lateral thigh with knee flexion. She has sensation intact to light touch. She has soft compressible compartments of the lower extremity including the anterior, lateral, and posterior compartments of the lower leg. She has a palpable dorsalis pedis pulse. And 5/5 dorsiflexion plantar flexion of the ankle. No pain on passive stretch of the toes. She demonstrates intact sensation in the sural saphenous superficial peroneal and deep peroneal nerve distributions. She does have dependent ecchymosis along the posterior thigh lateral thigh and down into the lower extremity below the knee. Objective Imaging Left femur x-ray: My impression: Two views left femur AP and lateral to include proximal and distal femur shows a left hip replacement with constrained liner. This appears well fixed. No fractures or dislocations are noted. There is calcification in the medial vasculature are small enthesophytes around the greater trochanter. Radiologist's impression: PROCEDURE: XR FEMUR LT MIN 2V INDICATIONS: 82 year-old female with left thigh pain and ecchymosis. TECHNIQUE: 4 views of the femur were acquired. COMPARISON: None. FINDINGS: Bones: Left hip arthroplasty hardware is intact and in expected positions. No fractures or dislocations. No suspicious bony lesions. Soft tissues: No suspicious soft tissue calcifications or masses. There is widespread superficial femoral artery atherosclerosis. IMPRESSION: No acute bony injuries of the left femur. Dictated by: Tyshawn Hillman M.D. on 11/05/2017 at 13:45 Approved by: Tyshawn Hillman M.D. on 11/05/2017 at 13:47 Ultrasound leg: Radiologist's impression: This report includes an Addendum and supersedes previous reports for this exam. PROCEDURE: US PERIPH VENOUS LOW EXTREM LT INDICATIONS: Pain swelling to left lower extremity TECHNIQUE: Real-time imaging, as well as color and pulse Doppler interrogation, were performed of the lower extremity deep veins from the inguinal ligament to the popliteal fossa. COMPARISON: None. FINDINGS: The deep veins are normally compressible, and free of intraluminal thrombus. Color and pulse Doppler demonstrate normal phasic intraluminal flow. There is normal augmentation response to distal compression maneuver. IMPRESSION: No deep venous thrombosis. Dictated by: Amy Hicks M.D. on 11/05/2017 at 14:19 Approved by: Amy Hicks M.D. on 11/05/2017 at 14:21 ADDENDUM: COMPARISON: [facility], CR, XR FEMUR LT MIN 2V, 11/05/2017, 12:57. The patient was brought back for additional scanning due to clinical concern for hematoma formation. At the site of medial thigh ecchymosis, no hematoma is identified. Within the lateral and anterior thigh, a large hypoechoic lesion measures at least 10 x 9 cm, demonstrating no internal vascular flow on color Doppler interrogation. Findings Continued Report - Page 2 of 2 PATIENT NAME: KOBE DURANT : 1935 EXAM DATE: 11/05/2017 14:[address] HENNA FERRERA CC: MODALITY: US PATIENT TYPE: ER CONTRAST MEDIA: STATION ID: [id number] FLUORO TIME: would be consistent with a large intramuscular or intermuscular hematoma of uncertain etiology. Dictated by: Tyshawn Hillman M.D. on 11/05/2017 at 15:40 Approved by: Tyshawn Hillman M.D. on 11/05/2017 at 15:43 Labs Result Diagrams: 11/05/17 17:44 11/05/17 13:47 Labs: Laboratory Results - last 24 hr 11/05/17 11/05/17 11/05/17 13:47 13:47 13:47 WBC 6.2 RBC 2.85 L Hgb 9.4 L Hct 27.7 L MCV 97.1 MCH 33.1 MCHC 34.1 RDW 15.0 H Plt Count 375 Neut % (Auto) 81.6 H Lymph % (Auto) 11.0 L [place] % (Auto) 6.5 Eos % (Auto) 0.2 L Baso % (Auto) 0.7 Neut # (Auto) 5000 PT 28.3 H INR 2.6 H Sodium 139 Potassium 4.2 Chloride 101 Carbon Dioxide 29 BUN 13 Creatinine 0.60 Estimated GFR > 60.0 BUN/Creatinine Ratio 21.7 Glucose 97 Calcium 8.7 Total Bilirubin 0.8 AST 21 ALT 23 Alkaline Phosphatase 51 Total Protein 6.7 Albumin 3.9 Globulin 2.8 Albumin/Globulin Ratio 1.4 11/05/17 17:44 WBC 6.4 RBC 2.62 L Hgb 8.7 L Hct 25.4 L MCV 96.8 MCH 33.0 MCHC 34.1 RDW 15.1 H Plt Count 355 Neut % (Auto) 78.0 H Lymph % (Auto) 13.7 L [place] % (Auto) 7.4 Eos % (Auto) 0.4 L Baso % (Auto) 0.5 Neut # (Auto) 5000 PT INR Sodium Potassium Chloride Carbon Dioxide BUN Creatinine Estimated GFR BUN/Creatinine Ratio Glucose Calcium Total Bilirubin AST ALT Alkaline Phosphatase Total Protein Albumin Globulin Albumin/Globulin Ratio Assessment & Plan (1) Hematoma of left thigh: Problem details: Patient is an 82-year-old female on anticoagulation but has an apparent acute hematoma of the left thigh measuring 10 x 9 cm on ultrasound, this appears to involve the anterior compartment. She is currently anticoagulated with an INR of 2.6 there have been efforts to reverse this she has received vitamin K and will receive FFP. She has had increased pain throughout the course of the day concern for evolving compartment syndrome. The decision was made to use the [place] compartment measurement system to evaluate compartment pressures, with the rationale that if the compartment pressures were non concerning reversal would continue and possible hematoma evacuation performed after complete INR reversal verses fasciotomy and evacuation tonight if there was concern for evolving compartment syndrome. [place] measurements of the anterior compartment were taken from several measurements with values ranging from 20-42. The patient's current diastolic blood pressure was 71 there for the hiatus measurements were concerning for evolving compartment syndrome and the decision was made to take the patient to the operating room tonight for hematoma evacuation and fasciotomy. The patient will receive simultaneous FFP as needed. The risks benefits and alternatives to the procedure were discussed with the patient including the risk for blood transfusion and need for additional surgeries, delayed closure , and risks for muscle necrosis, nerve and vessel injury. General risks of surgery including DVT PE cardiopulmonary complications and infection were also discussed. Informed consent was signed. And the operative extremity was marked. The patient is appropriately NPO and will receive cefazolin for preoperative antibiotic. Plan: 1. The patient will be evaluated and admitted to the hospitalist team for management of her medical comorbidities her INR will continue to be reversed. 2. She will go to the operating room for evacuation of her left thigh hematoma to night. Depending on the intraoperative appearance of the muscle this will either be primary closure or delayed closure using a negative pressure wound system. She will have postoperative monitoring of her H&H and INR She will have 24 hr of postoperative antibiotics/or until 24 hr after final closure. Current visit: Yes Status: Acute Quality VTE Deep Vein Thrombosis/Pulmonary Embolism Present on Admission: No
--- NOTE | 2017-11-05 19:10 | P.HP_ITS ---
History of Present Illness Date Patient Seen: 11/05/17 Time Patient Seen: 18:00 Chief complaint: STATES CELLULITIS LEFT THIGH Narrative: The patient is an 82-year-old female with a history of sick sinus syndrome with a pacemaker and on Coumadin with a goal of 2.5-3. And a remote history of a left total hip. She was at a nursing facility down in [place] and receives most of her care at [facility]. Today she presents to our hospital brought in by her daughter who lives in the local area. Patient is complaining of left thigh swelling ecchymosis and pain. The patient denies any recent trauma. She states her pain has increased over the last day as well as the size of the thigh. And ecchymosis has increased over the course of the day. Of note she has also been treated for suppose it is cellulitis of the left thigh for several days at her [facility]. The patient states she has had increased pain and swelling and tenderness to palpation of the anterior lateral left thigh she has noticed ecchymosis over the anterior lateral posterior thigh and down into the lower leg. She denies any numbness or tingling. She denies any fevers chills nausea or vomiting. Her only medical allergies still diltiazem. Rest makes the pain better trying to flex or extend the knee and creates pain along the anterior and lateral thigh. Patient History Medical History Sick sinus syndrome (Acute) Surgical History History of total left hip arthroplasty (Acute) Family & Social History Family History: Reviewed 11/05/17 by Vale Shelby MD Family history unavailable: No Social History: Lives at nursing facility in [place]. Received medical care at [facility]. Daughter with her today lives in [place] Tobacco & Substance use: Nonsmoker Meds Home Medications Medication Instructions Recorded Confirmed Type atorvastatin 20 mg PO QPM 11/05/17 11/05/17 History cephalexin 500 mg PO QID 11/05/17 11/05/17 History hydrocodone-acetaminophen 1 tab PO Q6H PRN 11/05/17 11/05/17 History sertraline 100 mg PO QPM 11/05/17 11/05/17 History warfarin [Jantoven] 2.5 mg PO QPM 11/05/17 11/05/17 History Allergies Allergy/AdvReac Type Severity Reaction Status Date / Time diltiazem [DILTIAZEM] Allergy Severe Rash Verified 11/05/17 12:21 Review of Systems Review of Systems Patient denies fevers chills numbness tingling nausea or vomiting. She does have a history of headaches but these have not been bad recently. She denies any recent falls. She does endorse musculoskeletal complaints with swelling to the left thigh please see the HPI. Otherwise review of systems negative except for history of pacemaker placement due to bradycardia/sick sinus Exam Vital Signs (past 8 hours): - 11/05/17 12:21 11/05/17 13:43 11/05/17 15:43 Temperature 97.6 F Pulse Rate 59 L 60 61 Respiratory Rate 16 16 18 Blood Pressure 112/58 L Blood Pressure [Left Arm] 140/61 H 144/68 H Pulse Oximetry 95 100 99 11/05/17 16:51 11/05/17 18:01 Temperature 97.9 F Pulse Rate 61 79 Respiratory Rate 18 16 Blood Pressure Blood Pressure [Left Arm] 143/71 H 140/70 H Pulse Oximetry 98 99 Oxygen Delivery Method Room Air Narrative Exam Narrative: Patient is alert and oriented to time place and person and in no acute distress evaluated in the emergency room. Her daughter is present with her. HEENT : Normocephalic atraumatic Respiratory examination: Lungs clear to auscultation bilaterally Cardiac exam: Regular rate and rhythm Abdomen: Soft nontender Musculoskeletal examination: Bilateral upper extremities: Full range of motion and no tenderness to palpation. No obvious deformity. Sensation intact to light touch median radial ulnar nerves. Palpable radial pulses Right lower extremity examination: Soft compartments of the thigh and lower extremity. 5/5 dorsiflexion plantar flexion of the ankle. Full range of motion of the knee 5/5 strength knee flexion and extension. Sensation intact to light touch superficial peroneal deep peroneal sural and saphenous nerve distributions Left lower extremity examination: Medial and posterior compartments grossly compressible. Anterior compartment with obvious swelling and thigh girth is much larger than contralateral side. No shiny appearance of skin. Compartment is compressible but there is tenderness on palpation and compression of the anterior compartment. The location of the large hematoma evaluated on ultrasound has been marked on the thigh approximately 10 cm in length. Patient is able to demonstrate a very limited knee flexion and extension but notes increased pain in the anterior lateral thigh with knee flexion. She has sensation intact to light touch. She has soft compressible compartments of the lower extremity including the anterior, lateral, and posterior compartments of the lower leg. She has a palpable dorsalis pedis pulse. And 5/5 dorsiflexion plantar flexion of the ankle. No pain on passive stretch of the toes. She demonstrates intact sensation in the sural saphenous superficial peroneal and deep peroneal nerve distributions. She does have dependent ecchymosis along the posterior thigh lateral thigh and down into the lower extremity below the knee. Objective Imaging Left femur x-ray: My impression: Two views left femur AP and lateral to include proximal and distal femur shows a left hip replacement with constrained liner. This appears well fixed. No fractures or dislocations are noted. There is calcification in the medial vasculature are small enthesophytes around the greater trochanter. Radiologist's impression: PROCEDURE: XR FEMUR LT MIN 2V INDICATIONS: 82 year-old female with left thigh pain and ecchymosis. TECHNIQUE: 4 views of the femur were acquired. COMPARISON: None. FINDINGS: Bones: Left hip arthroplasty hardware is intact and in expected positions. No fractures or dislocations. No suspicious bony lesions. Soft tissues: No suspicious soft tissue calcifications or masses. There is widespread superficial femoral artery atherosclerosis. IMPRESSION: No acute bony injuries of the left femur. Dictated by: Tyshawn Hillman M.D. on 11/05/2017 at 13:45 Approved by: Tyshawn Hillman M.D. on 11/05/2017 at 13:47 Ultrasound leg: Radiologist's impression: This report includes an Addendum and supersedes previous reports for this exam. PROCEDURE: US PERIPH VENOUS LOW EXTREM LT INDICATIONS: Pain swelling to left lower extremity TECHNIQUE: Real-time imaging, as well as color and pulse Doppler interrogation, were performed of the lower extremity deep veins from the inguinal ligament to the popliteal fossa. COMPARISON: None. FINDINGS: The deep veins are normally compressible, and free of intraluminal thrombus. Color and pulse Doppler demonstrate normal phasic intraluminal flow. There is normal augmentation response to distal compression maneuver. IMPRESSION: No deep venous thrombosis. Dictated by: Amy Hicks M.D. on 11/05/2017 at 14:19 Approved by: Amy Hicks M.D. on 11/05/2017 at 14:21 ADDENDUM: COMPARISON: [facility], CR, XR FEMUR LT MIN 2V, 11/05/2017, 12:57. The patient was brought back for additional scanning due to clinical concern for hematoma formation. At the site of medial thigh ecchymosis, no hematoma is identified. Within the lateral and anterior thigh, a large hypoechoic lesion measures at least 10 x 9 cm, demonstrating no internal vascular flow on color Doppler interrogation. Findings Continued Report - Page 2 of 2 PATIENT NAME: KOBE DURANT : 1935 EXAM DATE: 11/05/2017 14:[address] HENNA FERRERA CC: MODALITY: US PATIENT TYPE: ER CONTRAST MEDIA: STATION ID: [id number] FLUORO TIME: would be consistent with a large intramuscular or intermuscular hematoma of uncertain etiology. Dictated by: Tyshawn Hillman M.D. on 11/05/2017 at 15:40 Approved by: Tyshawn Hillman M.D. on 11/05/2017 at 15:43 Labs Result Diagrams: 11/05/17 17:44 11/05/17 13:47 Labs: Laboratory Results - last 24 hr 11/05/17 11/05/17 11/05/17 13:47 13:47 13:47 WBC 6.2 RBC 2.85 L Hgb 9.4 L Hct 27.7 L MCV 97.1 MCH 33.1 MCHC 34.1 RDW 15.0 H Plt Count 375 Neut % (Auto) 81.6 H Lymph % (Auto) 11.0 L [place] % (Auto) 6.5 Eos % (Auto) 0.2 L Baso % (Auto) 0.7 Neut # (Auto) 5000 PT 28.3 H INR 2.6 H Sodium 139 Potassium 4.2 Chloride 101 Carbon Dioxide 29 BUN 13 Creatinine 0.60 Estimated GFR > 60.0 BUN/Creatinine Ratio 21.7 Glucose 97 Calcium 8.7 Total Bilirubin 0.8 AST 21 ALT 23 Alkaline Phosphatase 51 Total Protein 6.7 Albumin 3.9 Globulin 2.8 Albumin/Globulin Ratio 1.4 11/05/17 17:44 WBC 6.4 RBC 2.62 L Hgb 8.7 L Hct 25.4 L MCV 96.8 MCH 33.0 MCHC 34.1 RDW 15.1 H Plt Count 355 Neut % (Auto) 78.0 H Lymph % (Auto) 13.7 L [place] % (Auto) 7.4 Eos % (Auto) 0.4 L Baso % (Auto) 0.5 Neut # (Auto) 5000 PT INR Sodium Potassium Chloride Carbon Dioxide BUN Creatinine Estimated GFR BUN/Creatinine Ratio Glucose Calcium Total Bilirubin AST ALT Alkaline Phosphatase Total Protein Albumin Globulin Albumin/Globulin Ratio Assessment & Plan (1) Hematoma of left thigh: Problem details: Patient is an 82-year-old female on anticoagulation but has an apparent acute hematoma of the left thigh measuring 10 x 9 cm on ultrasound, this appears to involve the anterior compartment. She is currently anticoagulated with an INR of 2.6 there have been efforts to reverse this she has received vitamin K and will receive FFP. She has had increased pain throughout the course of the day concern for evolving compartment syndrome. The decision was made to use the [place] compartment measurement system to evaluate compartment pressures, with the rationale that if the compartment pressures were non concerning reversal would continue and possible hematoma evacuation performed after complete INR reversal verses fasciotomy and evacuation tonight if there was concern for evolving compartment syndrome. [place] measurements of the anterior compartment were taken from several measurements with values ranging from 20- 42. The patient's current diastolic blood pressure was 71 there for the hiatus measurements were concerning for evolving compartment syndrome and the decision was made to take the patient to the operating room tonight for hematoma evacuation and fasciotomy. The patient will receive simultaneous FFP as needed. The risks benefits and alternatives to the procedure were discussed with the patient including the risk for blood transfusion and need for additional surgeries, delayed closure , and risks for muscle necrosis, nerve and vessel injury. General risks of surgery including DVT PE cardiopulmonary complications and infection were also discussed. Informed consent was signed. And the operative extremity was marked. The patient is appropriately NPO and will receive cefazolin for preoperative antibiotic. Plan: 1. The patient will be evaluated and admitted to the hospitalist team for management of her medical comorbidities her INR will continue to be reversed. 2. She will go to the operating room for evacuation of her left thigh hematoma to night. Depending on the intraoperative appearance of the muscle this will either be primary closure or delayed closure using a negative pressure wound system. She will have postoperative monitoring of her H&H and INR She will have 24 hr of postoperative antibiotics/or until 24 hr after final closure. Current visit: Yes Status: Acute Quality VTE Deep Vein Thrombosis/Pulmonary Embolism Present on Admission: No
--- NOTE | 2017-11-05 19:29 | PM.PREOP ---
Pre-operative Note Interval Note Pre-op Check: History & Physical Reviewed by Physician
[2017-11-05] MEDS: SODIUM CHLORIDE 0.9% 1,000 ML 42 ML IV (20:20)
--- NOTE | 2017-11-05 20:20 | PC.NURSE ---
Pt transferred down to OR by OR staff at this time.
--- NOTE | 2017-11-05 20:21 | P.HP_ITS ---
History of Present Illness Date Patient Seen: 11/05/17 Time Patient Seen: 20:08 Chief complaint: STATES CELLULITIS LEFT THIGH Narrative: Patient is an 82-year-old female brought to emergency department due to worsening pain in the left thigh. Daughter provides helpful history. Patient lives in assisted living memory care facility in [place] and was seen at emergency department there a week ago due to pain and swelling in the left thigh. Ultrasound ruled out a DVT. She was started on antibiotic for cellulitis. Her daughter brought her to stay with her in town so she could keep a close eye on her. It in the past 24 hr the pain has gotten much worse. She has not had fevers or chills. She is on warfarin for atrial fibrillation and has a pacemaker for sick sinus syndrome. She denies any falls or other trauma to the leg. Ultrasound exams showed a large 10 cm hematoma within the lateral and anterior thigh. Dr. Shelby was consulted for orthopedic surgery and concerned about potential involving compartment syndrome and taking her to the OR this evening. Patient's INR is therapeutic at 2.6. Daughter states her highest INR has been 3.2. Patient denies any chest pains, dyspnea, fevers or chills. Vitals in the ER okay except mildly hypertensive with normal heart rate , respiration and O2 sat. Patient History Medical History Atrial fibrillation (Acute) Dementia (Acute) Hyperlipidemia (Acute) Sick sinus syndrome (Acute) Surgical History History of total left hip arthroplasty (Acute) Family & Social History Family History: Reviewed 11/05/17 by Eduin Hogan MD Social History: Family history unavailable No Meds Home Medications Medication Instructions Recorded Confirmed Type atorvastatin 20 mg PO QPM 11/05/17 11/05/17 History cephalexin 500 mg PO QID 11/05/17 11/05/17 History hydrocodone-acetaminophen 1 tab PO Q6H PRN 11/05/17 11/05/17 History sertraline 100 mg PO QPM 11/05/17 11/05/17 History warfarin [Jantoven] 2.5 mg PO QPM 11/05/17 11/05/17 History Allergies Allergy/AdvReac Type Severity Reaction Status Date / Time diltiazem [DILTIAZEM] Allergy Severe Rash Verified 11/05/17 12:21 Review of Systems Review of Systems All systems reviewed & are unremarkable except as noted in HPI and below Exam Vital Signs (past 8 hours): - 11/05/17 12:21 11/05/17 13:43 11/05/17 15:43 Temperature 97.6 F Pulse Rate 59 L 60 61 Respiratory Rate 16 16 18 Blood Pressure 112/58 L Blood Pressure [Left Arm] 140/61 H 144/68 H Pulse Oximetry 95 100 99 11/05/17 16:51 11/05/17 18:01 11/05/17 19:17 Temperature 97.9 F Pulse Rate 61 79 88 Respiratory Rate 18 16 16 Blood Pressure Blood Pressure [Left Arm] 143/71 H 140/70 H 149/113 H Pulse Oximetry 98 99 99 11/05/17 19:45 11/05/17 20:01 Temperature 98.3 F 98.3 F Pulse Rate 71 74 Respiratory Rate 15 16 Blood Pressure 167/68 H 168/68 H Blood Pressure [Left Arm] Pulse Oximetry Oxygen Delivery Method Room Air Narrative Exam Narrative: GENERAL: This is an alert pleasant and cooperative elderly female in moderate discomfort. HEAD: Atraumatic. Normocephalic. EYES: Pupils equal, round and reactive. Extraocular motions intact. No scleral icterus. OROPHARYNX: moist mucosa NECK: Trachea midline. No JVD or lymphadenopathy. CARDIOVASCULAR: Regular rate and rhythm without murmurs, gallops, or rubs. RESPIRATORY: Clear to auscultation bilaterally. GASTROINTESTINAL: Abdomen nondistended, soft, non-tender. No hepato- splenomegaly, or palpable masses. EXTREMITIES: The right leg with normal thigh and calf circumference and without bruising. The left leg with much larger left thigh circumference, bruising on the posterior lateral and anterior thigh, more firm and tenderness on the anterior and lateral thigh, bruising and mild swelling of the left calf. Dorsalis pedis palpable bilaterally. Sensation intact to light touch bilaterally in lower extremities. NEUROLOGICAL: Alert, oriented to person and place, speech is intact Objective Labs Result Diagrams: 11/05/17 17:44 11/05/17 13:47 Labs: EKG: Atrial paced rhythm, no ST or T-wave abnormality Laboratory Results - last 24 hr 11/05/17 11/05/17 11/05/17 13:47 13:47 13:47 WBC 6.2 RBC 2.85 L Hgb 9.4 L Hct 27.7 L MCV 97.1 MCH 33.1 MCHC 34.1 RDW 15.0 H Plt Count 375 Neut % (Auto) 81.6 H Lymph % (Auto) 11.0 L [place] % (Auto) 6.5 Eos % (Auto) 0.2 L Baso % (Auto) 0.7 Neut # (Auto) 5000 PT 28.3 H INR 2.6 H Sodium 139 Potassium 4.2 Chloride 101 Carbon Dioxide 29 BUN 13 Creatinine 0.60 Estimated GFR > 60.0 BUN/Creatinine Ratio 21.7 Glucose 97 Calcium 8.7 Total Bilirubin 0.8 AST 21 ALT 23 Alkaline Phosphatase 51 Total Protein 6.7 Albumin 3.9 Globulin 2.8 Albumin/Globulin Ratio 1.4 Blood Type Antibody Screen 11/05/17 11/05/17 17:44 17:44 WBC 6.4 RBC 2.62 L Hgb 8.7 L Hct 25.4 L MCV 96.8 MCH 33.0 MCHC 34.1 RDW 15.1 H Plt Count 355 Neut % (Auto) 78.0 H Lymph % (Auto) 13.7 L [place] % (Auto) 7.4 Eos % (Auto) 0.4 L Baso % (Auto) 0.5 Neut # (Auto) 5000 PT INR Sodium Potassium Chloride Carbon Dioxide BUN Creatinine Estimated GFR BUN/Creatinine Ratio Glucose Calcium Total Bilirubin AST ALT Alkaline Phosphatase Total Protein Albumin Globulin Albumin/Globulin Ratio Blood Type A Positive Antibody Screen Negative Assessment & Plan Plan: Assessment/Plan Narrative: 1. Left thigh hematoma with possible evolving compartment syndrome inpatient on warfarin with therapeutic INR. She has gotten vitamin K 5 mg IV in the ER and will be getting FFP shortly. IV Dilaudid for pain. NPO. From cardiac standpoint she is low risk for surgery under general anesthesia. 2. Acute blood loss anemia. Hemoglobin 8.7, hematocrit 25.4 on admission. She seems to be tolerating the anemia and is not hypotensive or tachycardic. She is typed and crossed and may need transfusion postop if there is significant more blood loss. 3. Atrial fibrillation, pacemaker for sick sinus. Stable with EKG showing atrial paced rhythm. Quality VTE Deep Vein Thrombosis/Pulmonary Embolism Present on Admission: No
--- NOTE | 2017-11-05 20:23 | P.OP_ITS ---
Operative Date/Time/Diagnoses - Date of procedure: 11/05/17 Time of procedure: 20:30 Pre-op diagnosis: 1. Left thigh hematoma 2. Left thigh compartment syndrome, evolving Post-op diagnosis: same Procedure & Clinicians Procedure: 1. [place] 83815 2. Left thigh evacuation hematoma, debridement nonviable muscle Same procedure as scheduled: Yes Indications: Patient is an 82-year-old female on anticoagulation with a history of a pacemaker. The patient has had 1 day of increased left thigh pain and swelling. She was brought to the emergency room by her daughter today. Where she was found to have a swollen left thigh with pain on passive stretch exquisite tenderness to palpation. She denied numbness tingling and had full motor strength. She was found to have a large hematoma on ultrasound measuring approximately 10 x 9 cm along the anterior lateral thigh there was no evidence of active extravasation on ultrasound/Doppler. The patient had exquisite tenderness to palpation of the anterior compartment of the thigh. Patient's INR was found to be elevated at 2.6. The remainder of her compartments were soft and compressible. The patient did have Krish compartment measurement of her anterior compartment in the emergency room these measured from 20- 42 mm Hg and her diastolic at the time was 71. Given this and the patient's increasing pain over the course of the day there is concern for evolving compartment syndrome and the patient was indicated for left thigh fasciotomy and hematoma evacuation. The risks and benefits of the procedure have been discussed with the patient even opportunity to ask questions. The risks of surgery include but are not limited to infection, persistence of pain, need for additional procedures, need for blood transfusion, damage to nerves and blood vessels, DVT , PE, cardiopulmonary complications and . The patient expressed a thorough understanding of the risks and benefits of surgery and has elected to proceed. Consent was signed in the emergency room today. Patient was seen by the hospitalist and the anesthesia team prior to surgery. Surgeon: Vale Shelby Click Yes if Unassisted: Yes Anesthesia Type: General Operative Notes Findings: A left lateral thigh fasciotomy was completed the anterior and posterior compartments were decompressed. The anterior compartment was noted to be involved with a large hematoma within and deep to the vastus lateralis. Blood and clot was evacuated approximately 450 mL. The anterior medial vastus was noted to have a necrotic involvement. This necrotic musculature was excised. The remainder of the musculature was reactive to Bovie cautery. The posterior compartment was all viable muscle with no additional hematoma, and was soft and reactive. Closure Type: primary Specimen(s): other Implants & Drains: Two medium Hemovac drains hooked up to 1 suction canister Estimated Blood Loss (mL): 450 Blood products transfused: fresh frozen plasma Tourniquet time (min): 0 Procedure in detail: The patient was seen in the preoperative area the site of surgery was marked. The patient was brought back to the operating room and positioned supine on the operative table. All bony prominences were padded. SCD was worn on the non operative leg. General anesthesia was administered. The left thigh was prepped and draped in the standard sterile fashion. A formal time -out procedure was performed confirming the patient's side and site of surgery and presence of informed consent. Preoperative antibiotics were confirmed administered this was 2 g of Ancef. Additionally the patient was receiving fresh frozen plasma. All were in agreement. An approximately 20 cm extensile lateral incision was made over the course of the femur extending from the greater trochanter down towards the knee. This was taken down through the subcutaneous tissues to the level of the tensor fascia emma. The tensor was opened which evacuated the hematoma. This was suctioned and the vastus musculature was exposed. Retracting the vastus musculature laterally the anterior aspect of the muscle was evaluated closely. The muscle itself was not bulging or swollen. The anterior part and vastus intermedius allergies did appear to have some necrotic musculature was dark and nonreactive to Bovie. This was excised. Cultures from the hematoma and a sample of nonviable muscle were sent for microbiology. Posteriorly along the vastus lateralis the muscle was very reactive and healthy-appearing. Once the hematoma was completely evacuated and all nonviable muscle debrided the wound was irrigated with 6 L saline using a pulsatile lavage, containing gentamicin. Additional plain saline was used for a final wash. Hemostasis was obtained. At this point musculature was re-evaluated this was soft pink and reactive to Bovie. This was not swollen, and it was appreciated that the wound would close easily without any tension now that the hematoma was evacuated. Two deep medium Hemovac drains were placed and the tensor fascia emma was closed with 0 PDS suture. The subcutaneous tissues were closed with 2 0 PDS suture and the skin was closed with odell. An Aquacel dressing was placed. Wound closed easily without tension. All compartments of the thigh were soft at the end of the case and noticeably improved from preoperative appearance. All lower extremity compartments were all compressible and soft. The drapes were removed. Patient was awoken from anesthesia and taken to the recovery room in good condition. All counts were correct. There were no known the immediate complications from this procedure. Complications: none Condition: stable Disposition: PACU Plan for aftercare: Patient will be admitted to the floor. She will continue to be monitored closely. Then under the care of the medical team. She will have hemoglobin and hematocrit checked as well as lactate, CK and INR to trend. Her drains will remain in place until less than 30 cc per shift.
[2017-11-05] MEDS: CEFAZOLIN 2 GM/100 ML FROZ.PIGGY IV (20:34)
--- NOTE | 2017-11-05 21:02 | SUR.OPER ---
Supine on padded OR bed, head on pillow, arms secured on padded arm boards at <90 degrees abduction, legs uncrossed, safety belt at abdomen, tape over blanket over right lower leg. left leg controlled by surgeon
[2017-11-05] MEDS: SODIUM CHLORIDE IRRIG SOLUTION 3,000 ML, GENTAMICIN 240 MG IRR (21:46)
--- NOTE | 2017-11-05 23:02 | SUR.PHASEI ---
REPORT CALLED TO GREGORIO ALONZO ON ACUTE CARE FLOOR AT 2230. PT IN STABLE CONDITION, VSS. IV SITE CLEAR. PT DAUGHTER AT BEDSIDE DURING PACU RECOVERY. PT DENIES ANY PAIN/DISCOMFORT DURING PACU. DRSG TO SURGICAL EXTREMITY, C/D/I. HEMAVAC INTACT AND DRAINING BRIGHT RED BLOOD. PT SURGICAL EXTREMITY WARM TO TOUCH, +PULSE, CAP REFILL WNL AND +SENSTATION AND STRENGTH. PT DECLINED ANY ICE CHIPS OR NAUSEA. PT TRANSFERED TO ACUTE CARE FLOOR. PT WITH EYES CLOSED, BUT EASILY AROUSABLE TO VOICE WHEN SPOKEN TO. BEDSIDE REPORT GIVEN TO GREGORIO ALONZO AND TRANSFERED CARE OF PT, VSS TO GREGORIO ALONZO.
[2017-11-05] MEDS: SODIUM CHLORIDE 0.9% 1,000 ML 84 ML IV (23:09)
[2017-11-05] MEDS: HYDROMORPHONE 2 MG INJ 0.5 MG IV (23:11)
[2017-11-06] VITALS (14 sets, daily range): BP systolic 119–164; BP diastolic 56–93; PULSE 60–67; RESP 12–20; TEMP 36.4–37.3; O2SAT 94–100
[2017-11-06 00:41] LABS: INR 1.5 (0.9-1.3); Prothrombin Time 15.8 SECONDS (10.1-12.7)
[2017-11-06 00:44] LABS: Creatine Kinase 130 U/L (30-135)
[2017-11-06 00:45] LABS: Hemoglobin 6.9 g/dL (12.0-16.0); Lactate (Lactic Acid) 0.8 mmol/L (0.7-2.1)
[2017-11-06 00:46] LABS: Hematocrit 20.4 % (36-46)
[2017-11-06] MEDS: OXYCODONE IR 5 MG TABLET PO ×3 (01:52→16:58)
[2017-11-06] MEDS: CEFAZOLIN 2 GM/100 ML FROZ.PIGGY IV ×2 (04:21→13:54)
[2017-11-06] MEDS: HYDROMORPHONE 2 MG INJ 0.5 MG IV ×2 (04:22→06:59)
--- NOTE | 2017-11-06 07:30 | P.PN_ITS ---
Subjective Date Patient Seen: 11/06/17 Time Patient Seen: 07:22 Interval history: Pt bed. Appears confused. Hx of dementia. PD 1 S/P Left thigh lateral fasciotomy and Left thigh evacuation hematoma, debridement nonviable muscle by Dr. Shelby. Exam Vital Signs (past 8 hours): - 11/05/17 23:45 11/06/17 00:45 11/06/17 01:39 Temperature 98.5 F 98.2 F 98 F Pulse Rate 62 61 63 Respiratory Rate 18 18 12 Blood Pressure 138/75 H 133/63 H 141/70 H Pulse Oximetry 100 100 11/06/17 01:40 11/06/17 04:20 11/06/17 04:30 Temperature 98 F 98.9 F 98.9 F Pulse Rate 63 61 61 Respiratory Rate 12 20 20 Blood Pressure 141/70 H 148/93 H Pulse Oximetry 97 96 11/06/17 05:18 11/06/17 05:34 11/06/17 07:16 Temperature 98.2 F 97.8 F 97.5 F L Pulse Rate 64 61 62 Respiratory Rate 18 14 16 Blood Pressure 156/75 H 164/58 H 124/60 H Pulse Oximetry 95 Oxygen Delivery Method Room Air,Nasal Cannula Oxygen Flow Rate 100 Narrative Exam Narrative: Pt in bed. Drowsy and confused. Moderate swelling in the left anterior thigh. Aquacel dressing clean dry and intact. Hemovac drain 70 cc. Bilateral calves soft and nontender. Patient not able the follow commands. Objective Labs Result Diagrams: 11/06/17 00:22 11/05/17 13:47 Labs: Laboratory Results - last 24 hr 11/05/17 11/05/17 11/05/17 13:47 13:47 13:47 WBC 6.2 RBC 2.85 L Hgb 9.4 L Hct 27.7 L MCV 97.1 MCH 33.1 MCHC 34.1 RDW 15.0 H Plt Count 375 Neut % (Auto) 81.6 H Lymph % (Auto) 11.0 L [place] % (Auto) 6.5 Eos % (Auto) 0.2 L Baso % (Auto) 0.7 Neut # (Auto) 5000 PT 28.3 H INR 2.6 H Sodium 139 Potassium 4.2 Chloride 101 Carbon Dioxide 29 BUN 13 Creatinine 0.60 Estimated GFR > 60.0 BUN/Creatinine Ratio 21.7 Glucose 97 Lactate Calcium 8.7 Total Bilirubin 0.8 AST 21 ALT 23 Alkaline Phosphatase 51 Total Creatine Kinase Total Protein 6.7 Albumin 3.9 Globulin 2.8 Albumin/Globulin Ratio 1.4 Blood Type Antibody Screen Crossmatch 11/05/17 11/05/17 11/06/17 17:44 17:44 00:22 WBC 6.4 RBC 2.62 L Hgb 8.7 L 6.9 L* Hct 25.4 L 20.4 L* MCV 96.8 MCH 33.0 MCHC 34.1 RDW 15.1 H Plt Count 355 Neut % (Auto) 78.0 H Lymph % (Auto) 13.7 L [place] % (Auto) 7.4 Eos % (Auto) 0.4 L Baso % (Auto) 0.5 Neut # (Auto) 5000 PT INR Sodium Potassium Chloride Carbon Dioxide BUN Creatinine Estimated GFR BUN/Creatinine Ratio Glucose Lactate Calcium Total Bilirubin AST ALT Alkaline Phosphatase Total Creatine Kinase Total Protein Albumin Globulin Albumin/Globulin Ratio Blood Type A Positive Antibody Screen Negative Crossmatch See Detail 11/06/17 11/06/17 11/06/17 00:22 00:22 00:22 WBC RBC Hgb Hct MCV MCH MCHC RDW Plt Count Neut % (Auto) Lymph % (Auto) [place] % (Auto) Eos % (Auto) Baso % (Auto) Neut # (Auto) PT 15.8 H D INR 1.5 H Sodium Potassium Chloride Carbon Dioxide BUN Creatinine Estimated GFR BUN/Creatinine Ratio Glucose Lactate 0.8 Calcium Total Bilirubin AST ALT Alkaline Phosphatase Total Creatine Kinase 130 Total Protein Albumin Globulin Albumin/Globulin Ratio Blood Type Antibody Screen Crossmatch Assessment & Plan Post-op (1) Postoperative anemia due to acute blood loss: Problem details: Patient's hemoglobin and hematocrit are 6.9/20.4. Dr. Shelby was notified and ordered 2 units of packed RBCs which the patient is receiving. Current Visit: Yes Status: Acute Postoperative Procedures Operation Date: 11/05/17 18:00 Actual Procedures Side Surgeon p Thigh Hematoma Evac & washout Left Vale Shelby MD PD 1. Patient is status post left thigh lateral fasciotomy and left thigh evacuation of hematoma by Dr. Shelby. Continue Hemovac drains until less than 30 cc of drainage. Continue DVT prophylaxis with SCDs. Patient weight- bearing as tolerated. Time Spent With Patient less than 15 minutes Quality VTE Deep Vein Thrombosis/Pulmonary Embolism Present on Admission: No
[2017-11-06 09:32] LABS: Hematocrit 28.6 % (36-46); Hemoglobin 9.9 g/dL (12.0-16.0)
--- NOTE | 2017-11-06 12:13 | PT.IIE ---
Current Diagnoses Acute posthemorrhagic anemia (11/05/17) Contusion of left thigh, initial encounter (11/05/17) Surgery Performed Operation Date: 11/05/17 18:00 Actual Procedures p Thigh Hematoma Evac & washout(Left) - Vale Shelby MD Surgical History (Last Reviewed 11/06/17 @ 08:52 by Sangeetha Robledo, PT) History of total left hip arthroplasty (Acute) Medical History (Last Reviewed 11/06/17 @ 08:52 by Sangeetha Robledo, PT) Postoperative anemia due to acute blood loss (Acute) Hematoma of left thigh (Acute) Atrial fibrillation (Acute) Dementia (Acute) Atrial fibrillation (Acute) Dementia (Acute) Hyperlipidemia (Acute) Sick sinus syndrome (Acute) Physical Therapy Inpatient Evaluation/Re-Eval M1 PT/OT-IP Prior Functional Status Start: 11/06/17 12:16 Freq: NEEDED Status: Active Protocol: Document 11/06/17 12:13 DLM (Rec: 11/06/17 12:49 DLM [id number]) Medical Review Prior Functional Status Medical History Reviewed Yes Diet/Fluid Consistency Regular Communication WFL Mobility and Gait Independent with 4WW Activities of Daily Living and IADL's needing assist with medications Prior Functional Level (Other details) recent decline in gait due to left thigh pain Social History Household Members none Living Arrangements Assisted Living Home Equipment Four Wheel Walker Employment Status Retired Additional Social History Comment Her daughter reports she is at an assisted living facility that has care that can be progressed up to a memory care unit as needed, Her facility is in [place]. Recently she has been staying with her daughter for extra help. Her daughter is retired and available to provide care. Her daughter lives in [place] M2 PT-IP Current Condition Start: 11/06/17 12:16 Freq: NEEDED Status: Active Protocol: Document 11/06/17 12:13 DLM (Rec: 11/06/17 12:49 DLM [id number]) Physical Therapy Current Condition Current Condition Evaluation Date 11/06/17 Treatment Diagnosis hematoma left thigh, compartment syndrome, evacuation & fasciotomy Onset Date 11/05/17 Precautions Other Precautions hx of bilateral MICHELLE, left hip has hx of dislocation before it was revised Weight Bearing Status Weight Bearing Status Weight Bear as Tolerated M3 PT-IP Subjective Start: 11/06/17 12:16 Freq: NEEDED Status: Active Protocol: Document 11/06/17 12:13 DLM (Rec: 11/06/17 12:49 [facility] [id number]) Subjective Physical Therapy Visit Type Type Initial Evaluation Visit Start Time 11:45 Visit Stop Time 12:13 Total Visit Minutes 28 Number of SOFTBALL WINDER Visits 0 Physical Therapy Visit Comments Patient Comments Pt is asking where she is and why Patient/Caregiver Goals Her daughter reports she can take her home Therapy Pain Assessment Pain When Pain Assessed During Mobility Pain Present Pain Present Pain Reported FLACC Pain Scale Face Occasional grimace/frown Legs Uneasy, restless, tense Activity Squirming,shifting Cry Moans/whimpers/complains Consolability Difficult to console FLACC Total 6 Location Left Lower Posterior Lateral Thigh Intensity 6 Scale Used Richards-Contreras (Faces) Description Tender Pain Behaviors Facial Grimacing Guarding Holding Area Moaning Wincing Pain Management Techniques Elevation Re-positioning Timing of Activity with Medications M4 PT-IP Mobility and Gait Start: 11/06/17 12:16 Freq: NEEDED Status: Active Protocol: Document 11/06/17 12:13 DLM (Rec: 11/06/17 12:49 [facility] [id number]) PT-Bed Mobility Assessment Supine to Sit Supine to Sit Moderate Assistance Maximum Assistance Scooting Scooting to Edge of Bed Moderate Assistance Maximum Assistance Scooting Up and Down in Bed Dependent PT-Transfer Assessment Sit to and From Stand Sit to and from Stand Moderate Assistance Equipment Transfer Assistive Device Gait Belt Front Wheeled Walker Transfers Transfer Destination Chair Transfer Technique Stand Step Pivot Transfer Ability Level of Assist Moderate Assistance 2 Person Assistance Comments Mobility Comments pt c/o pain in left LE making it difficult for her to move her LE and to weight bear, pt mostly pivots on right LE for the transfer, she stand with the FWW but moving is difficult for her, pt up to recliner with feet elevated and daughter assisting her with lunch Gait Assessment Comments Gait Comments she is unable to ambulate at this time PT-Balance Assessment Sitting Balance and Reactions Static Sitting Balance Ability Good Dynamic Sitting Balance Ability Fair Standing Balance and Reactions Static Standing Balance Ability Fair Dynamic Standing Balance Ability Fair Device Used with FWW M5 PT-IP Objective Assessments Start: 11/06/17 12:16 Freq: NEEDED Status: Active Protocol: Document 11/06/17 12:13 DLM (Rec: 11/06/17 12:49 [facility] [id number]) Orientation Orientation/Cognition Level of Alertness Lethargic Orientation Name Birthday Language Function Ability No Deficits Noted Safety Awareness Decreased Safety Awareness Memory Description Short Term Impaired Care Home Impaired Comments she recognizes her daughter, she is not aware of where she is nor why. Pt sleeping at start of visit but able to wake up to stimulation. She closes her eyes often during this visit but stayed awake for activity. Gross Range of Motion Upper Extremity ROM Assessment Within Functional Limits Lower Extremity ROM Assessment Left Impaired Impairments only tolerating very small motions left hip and knee due to pain in her thigh area, pt holding left LE in an internally rotated position and adducted to the opposite LE Strength Upper Extremity Strength Assessment Bilaterally Impaired Shoulder generalized weakness throughout Lower Extremity Strength Assessment Bilaterally Impaired Hip generalized weakness throughout, poor strength left LE associated with pain Comments Strength Comments pt needs assistance to move left LE in bed, has difficulty moving the left LE in standing and has difficulty weight bearing on left LE Coordination Assessment Assessment Coordination Comments unable to fully assess coordination at this time due to her confusion and focus on pain Sensation Assessment Comments Sensation Comments unable to fully assess at this time Muscle Tone Muscle Tone WNL Yes M7 PT-IP Assessment and Plan Start: 11/06/17 12:16 Freq: NEEDED Status: Active Protocol: Document 11/06/17 12:13 [facility] (Rec: 11/06/17 12:49 [facility] [id number]) PT Summary Assessment and Plan Potential Rehabilitation Potential Good Status of Condition at Evaluation Unstable Summary Impairments Pain ROM Strength Balance Cognition Bed Mobility Transfers Gait Activity Tolerance Assessment Summary Pt is lethargic today but able to arouse for therapy. Assisted pt up to recliner for lunch. She needs two person assist and fWW to transfer to chair due to her pain and weakness post-op. Noted pt is shaking today. Pt's impaired cognition makes it hard for her to manage her pain. She does not know where she is nor why she is here at this time. Her daughter is present and very supportive today. Her daughter voices desire to have pt discharge home with her and she will assist her in her recovery. Concerned that pt is needing a lot of physical assist at this time. Will continue to assess if her daughter will be able to assist her at this level or if pt will progress enough to be easier to manage at home. She would benefit from SNF rehab if needed before discharge to her daughter's house. Goals Bed Mobility Goal Minimal Assistance Transfer Goal Minimal Assistance Front Wheeled Walker Four Wheeled Walker Gait Goal Minimal Assistance Front Wheel Walker Four Wheel Walker Gait Distance 30 Days to Meet Goals 5 Frequency of Treatment Frequency Of Treatment Twice a Day Treatment Plan Physical Therapy Treatment Plan Bed Mobility Training Transfer Training Gait Training Therapeutic Exercise Balance Retraining Discharge Planning Hot or Cold Pack Other Recommendations and Next Treatment focus on transfers until Focus better able to take steps Recommendations To Nursing Amount of Assist Needed 2 Person Assist Discharge Recommendations PT Discharge Recommendations Home with 03/12 Assist Home Health SNF Rehab Other Discharge Recommendations continue to assess if pt's daughter will be able to physically assist her for discharge to daughter's house or if pt will need SNF before going to her daughters house, recommend home health PT if pt discharges to her daughter's house.
[2017-11-06] MEDS: HYDROMORPHONE 0.5 MG INJ IV (12:15)
[2017-11-06] MEDS: DOCUSATE 100 MG CAPSULE PO ×2 (13:53→20:38)
--- NOTE | 2017-11-06 13:54 | PT.IPTN ---
Current Diagnoses Acute posthemorrhagic anemia (11/05/17) Contusion of left thigh, initial encounter (11/05/17) Surgery Performed Operation Date: 11/05/17 18:00 Actual Procedures p Thigh Hematoma Evac & washout(Left) - Vale Shelby MD Physical Therapy Treatment Note M2 PT-IP Current Condition Start: 11/06/17 12:16 Freq: NEEDED Status: Active Protocol: Document 11/06/17 12:13 DLM (Rec: 11/06/17 12:49 DLM [id number]) Physical Therapy Current Condition Current Condition Evaluation Date 11/06/17 Treatment Diagnosis hematoma left thigh, compartment syndrome, evacuation & fasciotomy Onset Date 11/05/17 Precautions Other Precautions hx of bilateral MICHELLE, left hip has hx of dislocation before it was revised Weight Bearing Status Weight Bearing Status Weight Bear as Tolerated M3 PT-IP Subjective Start: 11/06/17 12:16 Freq: NEEDED Status: Active Protocol: Document 11/06/17 13:54 DLM (Rec: 11/06/17 16:16 DLM [id number]) Subjective Physical Therapy Visit Type Type Treatment Note Visit Start Time 13:30 Visit Stop Time 13:54 Total Visit Minutes 24 Number of GUTTER MOUTH CUTTER Visits 0 Physical Therapy Visit Comments Patient Comments She c/o soreness in left thigh area, not aware that she is not in bed at this time Therapy Pain Assessment Pain When Pain Assessed During Mobility Pain Present Pain Present Pain Reported FLACC Pain Scale Face Frequent/constant frown Legs Uneasy, restless, tense Activity Squirming,shifting Cry Moans/whimpers/complains Consolability Difficult to console FLACC Total 7 Location Left Lower Posterior Lateral Thigh Intensity 7 Scale Used FLACC Description Aching Pain Behaviors Facial Grimacing Guarding Moaning Wincing Pain Management Techniques Elevation Re-positioning Timing of Activity with Medications M4 PT-IP Mobility and Gait Start: 11/06/17 12:16 Freq: NEEDED Status: Active Protocol: Document 11/06/17 13:54 DLM (Rec: 11/06/17 16:16 DLM [id number]) PT-Bed Mobility Assessment Sit to Supine Sit to Supine Moderate Assistance PT-Transfer Assessment Sit to and From Stand Sit to and from Stand Moderate Assistance Equipment Transfer Assistive Device Gait Belt Front Wheeled Walker Transfers Transfer Destination Bed Transfer Technique Stand Step Pivot Transfer Ability Level of Assist Minimal Assistance 2 Person Assistance Comments Mobility Comments two person assist used for safety at this time due to pt confusion and her level of pain with activity, pt stand statically well with fWW but having difficulty stepping, able to take small steps this visit which is better than AM session Gait Assessment Comments Gait Comments unable to ambulate at this time due to pain and generalized weakness PT-Balance Assessment Sitting Balance and Reactions Static Sitting Balance Ability Good Dynamic Sitting Balance Ability Fair Standing Balance and Reactions Static Standing Balance Ability Fair Dynamic Standing Balance Ability Fair Device Used with fWW M5 PT-IP Objective Assessments Start: 11/06/17 12:16 Freq: NEEDED Status: Active Protocol: Document 11/06/17 12:13 DLM (Rec: 11/06/17 12:49 DLM [id number]) Orientation Orientation/Cognition Level of Alertness Lethargic Orientation Name Birthday Language Function Ability No Deficits Noted Safety Awareness Decreased Safety Awareness Memory Description Short Term Impaired Levers Lace Machine Operator Impaired Comments she recognizes her daughter, she is not aware of where she is nor why. Pt sleeping at start of visit but able to wake up to stimulation. She closes her eyes often during this visit but stayed awake for activity. Gross Range of Motion Upper Extremity ROM Assessment Within Functional Limits Lower Extremity ROM Assessment Left Impaired Impairments only tolerating very small motions left hip and knee due to pain in her thigh area, pt holding left LE in an internally rotated position and adducted to the opposite LE Strength Upper Extremity Strength Assessment Bilaterally Impaired Shoulder generalized weakness throughout Lower Extremity Strength Assessment Bilaterally Impaired Hip generalized weakness throughout, poor strength left LE associated with pain Comments Strength Comments pt needs assistance to move left LE in bed, has difficulty moving the left LE in standing and has difficulty weight bearing on left LE Coordination Assessment Assessment Coordination Comments unable to fully assess coordination at this time due to her confusion and focus on pain Sensation Assessment Comments Sensation Comments unable to fully assess at this time Muscle Tone Muscle Tone WNL Yes M7 PT-IP Assessment and Plan Start: 11/06/17 12:16 Freq: NEEDED Status: Active Protocol: Document 11/06/17 13:54 DLM (Rec: 11/06/17 16:16 DLM [id number]) PT Summary Assessment and Plan Summary Impairments Pain ROM Strength Balance Cognition Bed Mobility Transfers Gait Activity Tolerance Progress Towards Goals Slow Progress due to Pain Slow Progress due to Activity Tolerance Assessment Summary Pt is slowly progressing this afternoon compared to this morning. Pt is sleeping in the recliner but wakes easily to stimulation. Pt is cooperative and shows good effort with activity. She does better when allowed to move slowly. She needs assist moving left LE in bed to help manage her pain. Pt continues to hold left LE in an internally rotated postion. Frequency of Treatment Frequency Of Treatment Twice a Day Treatment Plan Physical Therapy Treatment Plan Bed Mobility Training Transfer Training Gait Training Therapeutic Exercise Balance Retraining Discharge Planning Hot or Cold Pack Other Recommendations and Next Treatment focus on transfers until Focus better able to take steps then progress to gait Recommendations To Nursing Amount of Assist Needed 2 Person Assist Discharge Recommendations PT Discharge Recommendations SNF Rehab
--- NOTE | 2017-11-06 14:43 | CM.DANOTE ---
DCP: assessment: case received, EMR reviewed and met with pt and her POA daughter: Hamida Stern: [place]:cell: [phone]. H: [phone] Introduced self and role. Pt is an 82 year old female who admitted last night to the care of the hospitalist team. Surgeon: Dr. Shelby: consulted and took pt to surgery last night. Pt lives in a memory care facility in [place]. She was with her daughter in [place] so daughter could watch over what was initially thought to be cellulitis of her leg. When s/s worsened she brought her mother to ER. P: at this point plan is for rehab at snf level before home. 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 She is familiar with [facility] and with Dr. Perez, [facility] medical malpractice paralegal). Referral: [facility] She will talk with Hamida and review case with her team to make sure their facility can meet pt 's needs. P: snf at d/c...will be following.
--- NOTE | 2017-11-06 16:24 | PC.NURSE ---
Dayshift Note: Pt checked on and assessed. Pt was initially sleeping in bed, denied pain, oriented to self only. Pt with baseline memory deficit, requires frequent re-orientation to circumstance and place. Pt helped OOB with PT this late morning for lunch. Pt with severe pain in LLE. Given 0.5 mg IV dilaudid per EMAR pt with good relief but sleepy. When patient was helped back to bed, given oxycodone po 5 mg for pain. Pt now reporting pain well controlled and is awake and interactive. Pt's LLE swollen with large hematoma, post-op aquacel dressing CDI. hemovac dressing with only 10 ml out, but leaking around insertion site. CMS intact, warm extremity, thigh is soft to touch. Zamudio in place with large output of clear yellow urine. Pt's daughter at bedside, pt with poor appetite, (present prior to this admission according to daughter), daughter is helping encourage and feed pt. Pt otherwise mostly sleeping this shift.
[2017-11-06] MEDS: SERTRALINE 50 MG TABLET 100 MG PO (16:59)
[2017-11-06] MEDS: ATORVASTATIN 20 MG TABLET PO (17:01)
--- NOTE | 2017-11-06 17:16 | PC.NURSE ---
Addendum entered by Eliane Cunningham R.N. 11/06/17 20:39: Visible decrease to swelling to left thigh, no redness, mild tenderness to touch, CMS intact to LLE. Girth 44 cm. Denies pain or discomfort. Requires reorientation and reassurance. BA active, uses call light for staff assistance. Hemovac draining sanguinous fluid. Original Note: Shirley note: Patients daughter expressed concern regarding increase in swelling to left thigh, upon reassessment no changes seen by this RN from previous assessment 1.5 hrs prior. Measured the left thigh girth above insertion of Hemovac for objective comparison, 45.5 cm. 2+ edema noted to extremity, minimal tenderness to touch, CMS intact to LE. No increase or change in pain characteristics, or discoloration to extremity. Patient alert, forgetful, calm, cooperative in no apparent distress. VSS. Sitting up eating dinner with family at side.
--- NOTE | 2017-11-06 19:45 | P.PN_ITS ---
Subjective Date Patient Seen: 11/06/17 Interval history: Patient confused this morning consistent with dementia diagnosis. She has some pain in the left leg. Exam Vital Signs (past 8 hours): - 11/06/17 13:28 11/06/17 15:30 Temperature 98.0 F 98.6 F Pulse Rate 65 65 Respiratory Rate 14 16 Blood Pressure 121/56 H 123/61 H Pulse Oximetry 99 94 Oxygen Delivery Method Nasal Cannula Oxygen Flow Rate 0 Narrative Exam Narrative: GENERAL: Patient is alert and mildly uncomfortable HEENT: Head normocephalic, atraumatic. Mucous membranes moist. CHEST: Clear to auscultation bilaterally. CARDIAC: Regular paced rhythm ABDOMEN: Nondistended, soft, nontender EXTREMITIES: Left thigh surgical dressing and drain noted NEUROLOGICAL: Confused, not oriented to place or time SKIN: Warm, dry, no rash Objective Labs Result Diagrams: 11/06/17 09:24 11/05/17 13:47 Labs: Laboratory Results - last 24 hr 11/05/17 11/06/17 11/06/17 17:44 00:22 00:22 Hgb 6.9 L* Hct 20.4 L* PT 15.8 H D INR 1.5 H Lactate Total Creatine Kinase Blood Type A Positive Antibody Screen Negative Crossmatch See Detail 11/06/17 11/06/17 11/06/17 00:22 00:22 09:24 Hgb 9.9 L Hct 28.6 L PT INR Lactate 0.8 Total Creatine Kinase 130 Blood Type Antibody Screen Crossmatch Assessment & Plan Plan: Assessment/Plan Narrative: 1. Left thigh hematoma, nontraumatic, due to anticoagulation. Patient is postop day # 1 surgical I and D noting small amount of muscle tissue necrosis was present. Continue postop pain management and PT. 2. Acute blood loss anemia. Received 2 units PRBC with hematocrit responding appropriately. Recheck labs in a.m.. 3. Atrial fibrillation, anticoagulation with warfarin, pacemaker. She received FFP and vitamin K to reverse warfarin coagulopathy. 4. Dementia. Daughter helpful with reorienting and supporting patient. 5. Disposition. Inpatient status. May need retirement rehab. Quality VTE Deep Vein Thrombosis/Pulmonary Embolism Present on Admission: No
[2017-11-07] MEDS: SODIUM CHLORIDE 0.9% 1,000 ML 84 ML IV (02:12)
[2017-11-07] MEDS: ACETAMINOPHEN 325 MG TABLET 650 MG PO ×2 (03:16→09:43)
[2017-11-07 03:30] VITALS: BP 127/57; PULSE 66; RESP 16; TEMP 36.6; O2SAT 97
[2017-11-07 06:12] LABS: Add Manual Diff / Slide Review NO; Basophils Percent Auto 0.5 % (0-2); Eosinophils Percent Auto 1.3 % (2-4); Hematocrit 25.4 % (36-46); Hemoglobin 8.9 g/dL (12.0-16.0); Lymphocytes Percent Auto 15.1 % (25-40); Mean Corpuscular Hemoglobin 32.6 PG (26-34); Monocytes Percent Auto 9.9 % (3-14); Neutrophils Absolute Auto 3600 /uL (3000-5900); Neutrophils Percent Auto 73.2 % (50-75); Platelet Count 262 X10^3/uL (150-400); Red Blood Cell Count 2.73 X10^6/uL (4.0-5.2); Red Cell Distribution Width 16.9 % (11.6-14.8); White Blood Cell Count 4.9 X10^3/uL (4.5-11.0)
[2017-11-07 06:19] LABS: Blood Urea Nitrogen 7 mg/dL (7-17); Carbon Dioxide 30 mmol/L (22-32); Chloride 104 mmol/L (98-107); Estimated Glomerular Filt Rate > 60.0 mL/min (>60); Glucose 109 mg/dL (80-110); HEMOLYSIS < 15 (0-50); Potassium 3.7 mmol/L (3.4-5.1); Sodium 140 mmol/L (137-145)
[2017-11-07 08:20] VITALS: BP 136/74; PULSE 62; RESP 14; TEMP 36; O2SAT 97
--- NOTE | 2017-11-07 09:20 | PT.IPTN ---
Current Diagnoses Acute posthemorrhagic anemia (11/05/17) Contusion of left thigh, initial encounter (11/05/17) Surgery Performed Operation Date: 11/05/17 18:00 Actual Procedures p Thigh Hematoma Evac & washout(Left) - Vale Shelby MD Physical Therapy Treatment Note M2 PT-IP Current Condition Start: 11/06/17 12:16 Freq: NEEDED Status: Active Protocol: Document 11/06/17 12:13 DLM (Rec: 11/06/17 12:49 DLM [id number]) Physical Therapy Current Condition Current Condition Evaluation Date 11/06/17 Treatment Diagnosis hematoma left thigh, compartment syndrome, evacuation & fasciotomy Onset Date 11/05/17 Precautions Other Precautions hx of bilateral MICHELLE, left hip has hx of dislocation before it was revised Weight Bearing Status Weight Bearing Status Weight Bear as Tolerated M3 PT-IP Subjective Start: 11/06/17 12:16 Freq: NEEDED Status: Active Protocol: Document 11/07/17 09:20 GGD (Rec: 11/07/17 11:59 GGD [email or web address]) Subjective Physical Therapy Visit Type Type Treatment Note Visit Start Time 08:40 Visit Stop Time 09:20 Total Visit Minutes 40 Number of CREDIT ANALYST Visits 1 Physical Therapy Visit Comments Patient Comments Pt states she not sure why she is here. Therapy Pain Assessment Pain When Pain Assessed During Mobility Pain Present Pain Present Pain Reported FLACC Pain Scale Face Occasional grimace/frown Legs Uneasy, restless, tense Activity Squirming,shifting Cry Moans/whimpers/complains Consolability Reassurable with touch FLACC Total 5 M4 PT-IP Mobility and Gait Start: 11/06/17 12:16 Freq: NEEDED Status: Active Protocol: Document 11/07/17 09:20 GGD (Rec: 11/07/17 11:59 GGD [id number]) PT-Bed Mobility Assessment Supine to Sit Supine to Sit Moderate Assistance 1 Person Assistance Head of Bed Elevated Scooting Scooting to Edge of Bed Minimal Assistance PT-Transfer Assessment Sit to and From Stand Sit to and from Stand Moderate Assistance 1 Person Assistance Use of Upper Extremities Equipment Transfer Assistive Device Gait Belt Front Wheeled Walker Transfers Transfer Destination Chair Transfer Technique Stand Step Pivot Transfer Ability Level of Assist Minimal Assistance 1 Person Assistance Use of Upper Extremities Comments Mobility Comments Pt able to take small transfer steps. M6 PT-IP Treatment Start: 11/06/17 12:16 Freq: NEEDED Status: Active Protocol: Document 11/07/17 09:20 GGD (Rec: 11/07/17 11:59 GGD [id number]) Physical Therapy Treatment Exercises Exercises Ankle Pumps Gluteal Sets Quad Sets Heel Slides M7 PT-IP Assessment and Plan Start: 11/06/17 12:16 Freq: NEEDED Status: Active Protocol: Document 11/07/17 09:20 GGD (Rec: 11/07/17 11:59 GGD [email or web address]) PT Summary Assessment and Plan Summary Assessment Summary Pt progress with mobility. She was able to assist with bed mobilty. She had improved standing posture and was able to take small steps. Frequency of Treatment Frequency Of Treatment Twice a Day Treatment Plan Physical Therapy Treatment Plan Bed Mobility Training Transfer Training Gait Training Therapeutic Exercise Balance Retraining Discharge Planning Hot or Cold Pack Other Recommendations and Next Treatment Harrington of gait with chair Focus behind. Recommendations To Nursing Amount of Assist Needed 2 Person Assist Discharge Recommendations PT Discharge Recommendations SNF Rehab
--- NOTE | 2017-11-07 09:41 | PM.PN.1 ---
Subjective Date Patient Seen: 11/07/17 Time Patient Seen: 09:42 Interval history: No new complaints she did not like the compression pneumatic stockings and stopped using those Exam Vital Signs (past 8 hours): - 11/07/17 03:30 11/07/17 08:20 Temperature 97.8 F 96.8 F L Pulse Rate 66 62 Respiratory Rate 16 14 Blood Pressure 127/57 H 136/74 H Pulse Oximetry 97 97 Oxygen Delivery Method Nasal Cannula Oxygen Flow Rate 0 Narrative Exam Narrative: She is up sitting in a chair she is conversant but very confused HEENT exam unremarkable Lungs Clear to auscultation Heart regular rhythm Abdomen soft nontender Extremities the left thigh drain for the hematoma is still in place the incision is dressed no signs of infection Neuro exam awake alert disoriented and confused as not know date or where she is at Skin warm and dry Objective Labs Result Diagrams: 11/07/17 05:42 11/07/17 05:42 Labs: Laboratory Results - last 24 hr 11/07/17 11/07/17 05:42 05:42 WBC 4.9 RBC 2.73 L Hgb 8.9 L Hct 25.4 L MCV 93.0 D MCH 32.6 MCHC 35.0 RDW 16.9 H Plt Count 262 Neut % (Auto) 73.2 Lymph % (Auto) 15.1 L [place] % (Auto) 9.9 Eos % (Auto) 1.3 L Baso % (Auto) 0.5 Neut # (Auto) 3600 Sodium 140 Potassium 3.7 Chloride 104 Carbon Dioxide 30 BUN 7 Creatinine 0.50 L Estimated GFR > 60.0 BUN/Creatinine Ratio 14.0 Glucose 109 Calcium 8.0 L Assessment & Plan Plan: Assessment/Plan Narrative: 1. Left thigh hematoma, nontraumatic, due to anticoagulation. Patient is postop day # 2 surgical I and D noting small amount of muscle tissue necrosis was present. Continue postop pain management and PT. 2. Acute blood loss anemia. Received 2 units PRBC with hematocrit responding appropriately. Manic crit down to 20 on the th and then post transfusion up to 28 this morning at 25 plan to recheck tomorrow 3. Atrial fibrillation, anticoagulation with warfarin, pacemaker. She received FFP and vitamin K to reverse warfarin coagulopathy. INR has been at 1.5 and she should probably remain off the warfarin for the time being. 4. Dementia. Daughter helpful with reorienting and supporting patient. 5. Disposition. Inpatient status. Plan is for discharge to long term when she has improved to the point that she is ready for discharge Quality VTE Deep Vein Thrombosis/Pulmonary Embolism Present on Admission: No
[2017-11-07] MEDS: OXYCODONE IR 5 MG TABLET PO ×2 (09:42→14:23)
[2017-11-07] MEDS: DOCUSATE 100 MG CAPSULE PO ×2 (09:42→20:31)
--- NOTE | 2017-11-07 10:25 | PM.PNPO.1 ---
Subjective Date Patient Seen: 11/07/17 Time Patient Seen: 10:26 Interval history: Hospital day 3, postop day 2 following left thigh lateral fasciotomy and evacuation of hematoma by Dr. Perdomo. Patient did have significant anemia yesterday with H&H 6.9/20.4. Dr. Hogan ordered 2 units of PRBC. H&H improved last night at 9.1/28.6. She is taking Tylenol and oxycodone for pain. Still has Hemovac in place with minimal drainage. The patient does have dementia. She had been admitted to a memory care unit in [place], [place] recently. She was brought up to the [facility] here by her daughter because of concern about her leg. community development planner mentions the possible admission to [facility] on discharge. Exam Vital Signs (past 8 hours): - 11/07/17 03:30 11/07/17 08:20 Temperature 97.8 F 96.8 F L Pulse Rate 66 62 Respiratory Rate 16 14 Blood Pressure 127/57 H 136/74 H Pulse Oximetry 97 97 Oxygen Delivery Method Nasal Cannula Oxygen Flow Rate 0 Narrative Exam Narrative: Alert, responsive in no acute distress resting in bed. Legs. Aquacel dressing to the left lateral thigh is dry without drainage or inflammation. Hemovac in place with minimal drainage. No calf pain or swelling. Pulses symmetrical. Objective Labs Result Diagrams: 11/07/17 05:42 11/07/17 05:42 Labs: Laboratory Results - last 24 hr 11/07/17 11/07/17 05:42 05:42 WBC 4.9 RBC 2.73 L Hgb 8.9 L Hct 25.4 L MCV 93.0 D MCH 32.6 MCHC 35.0 RDW 16.9 H Plt Count 262 Neut % (Auto) 73.2 Lymph % (Auto) 15.1 L [place] % (Auto) 9.9 Eos % (Auto) 1.3 L Baso % (Auto) 0.5 Neut # (Auto) 3600 Sodium 140 Potassium 3.7 Chloride 104 Carbon Dioxide 30 BUN 7 Creatinine 0.50 L Estimated GFR > 60.0 BUN/Creatinine Ratio 14.0 Glucose 109 Calcium 8.0 L Assessment & Plan Post-op Postoperative Procedures Operation Date: 11/05/17 18:00 Actual Procedures Side Surgeon p Thigh Hematoma Evac & washout Left Vale Shelby MD I will DC Hemovac today. Patient to work with physical therapy. She is being followed by hospitalist and possible discharge to SNF. Time Spent With Patient less than 15 minutes Quality VTE Deep Vein Thrombosis/Pulmonary Embolism Present on Admission: No
[2017-11-07 12:00] VITALS: BP 108/45; PULSE 63; RESP 18; TEMP 36.5; O2SAT 94
--- NOTE | 2017-11-07 13:10 | PT.IPTN ---
Current Diagnoses Acute posthemorrhagic anemia (11/05/17) Contusion of left thigh, initial encounter (11/05/17) Surgery Performed Operation Date: 11/05/17 18:00 Actual Procedures p Thigh Hematoma Evac & washout(Left) - Vale Shelby MD Physical Therapy Treatment Note M2 PT-IP Current Condition Start: 11/06/17 12:16 Freq: NEEDED Status: Active Protocol: Document 11/06/17 12:13 DLM (Rec: 11/06/17 12:49 DLM [id number]) Physical Therapy Current Condition Current Condition Evaluation Date 11/06/17 Treatment Diagnosis hematoma left thigh, compartment syndrome, evacuation & fasciotomy Onset Date 11/05/17 Precautions Other Precautions hx of bilateral MICHELLE, left hip has hx of dislocation before it was revised Weight Bearing Status Weight Bearing Status Weight Bear as Tolerated M3 PT-IP Subjective Start: 11/06/17 12:16 Freq: NEEDED Status: Active Protocol: Document 11/07/17 13:10 GGD (Rec: 11/07/17 16:52 GGD [email or web address]) Subjective Physical Therapy Visit Type Type Treatment Note Visit Start Time 12:40 Visit Stop Time 13:10 Total Visit Minutes 30 Number of [employer] Visits 2 Physical Therapy Visit Comments Patient Comments Pt states she is tired and would like to go back to bed. Therapy Pain Assessment Pain When Pain Assessed During Mobility Pain Present Pain Present Pain Reported FLACC Pain Scale Face Occasional grimace/frown Legs Uneasy, restless, tense Activity Quiet, moves easily Cry Moans/whimpers/complains Consolability Reassurable with touch FLACC Total 4 M4 PT-IP Mobility and Gait Start: 11/06/17 12:16 Freq: NEEDED Status: Active Protocol: Document 11/07/17 13:10 GGD (Rec: 11/07/17 16:52 GGD [email or web address]) PT-Bed Mobility Assessment Sit to Supine Sit to Supine Moderate Assistance 1 Person Assistance Scooting Scooting to Edge of Bed Contact Guard Assistance PT-Transfer Assessment Sit to and From Stand Sit to and from Stand Minimal Assistance 1 Person Assistance Use of Upper Extremities Equipment Transfer Assistive Device Gait Belt Front Wheeled Walker Comments Mobility Comments Pt need cues for mobility. Gait Assessment Gait Gait Assistance Required: Minimum Assistance 1 Person Assist Distance (Feet) (feet) 15 Assistive Devices Assistive Device Gait Belt Front Wheeled Walker Gait Deviations General Gait Pattern Antalgic Decreased Stride Length Decreased Feet Clearance Step-to Gait Factors Limiting Gait Function Factors Limiting Gait Function Decreased Activity Tolerance Decreased Strength Limited Range of Motion Pain Poor Balance Poor Safety Awareness M5 PT-IP Objective Assessments Start: 11/06/17 12:16 Freq: NEEDED Status: Active Protocol: Document 11/06/17 12:13 DLM (Rec: 11/06/17 12:49 DLM [id number]) Orientation Orientation/Cognition Level of Alertness Lethargic Orientation Name Birthday Language Function Ability No Deficits Noted Safety Awareness Decreased Safety Awareness Memory Description Short Term Impaired Tank Cooper Impaired Comments she recognizes her daughter, she is not aware of where she is nor why. Pt sleeping at start of visit but able to wake up to stimulation. She closes her eyes often during this visit but stayed awake for activity. Gross Range of Motion Upper Extremity ROM Assessment Within Functional Limits Lower Extremity ROM Assessment Left Impaired Impairments only tolerating very small motions left hip and knee due to pain in her thigh area, pt holding left LE in an internally rotated position and adducted to the opposite LE Strength Upper Extremity Strength Assessment Bilaterally Impaired Shoulder generalized weakness throughout Lower Extremity Strength Assessment Bilaterally Impaired Hip generalized weakness throughout, poor strength left LE associated with pain Comments Strength Comments pt needs assistance to move left LE in bed, has difficulty moving the left LE in standing and has difficulty weight bearing on left LE Coordination Assessment Assessment Coordination Comments unable to fully assess coordination at this time due to her confusion and focus on pain Sensation Assessment Comments Sensation Comments unable to fully assess at this time Muscle Tone Muscle Tone WNL Yes M6 PT-IP Treatment Start: 11/06/17 12:16 Freq: NEEDED Status: Active Protocol: Document 11/07/17 13:10 GGD (Rec: 11/07/17 16:52 GGD [email or web address]) Physical Therapy Treatment Exercises Exercises Ankle Pumps Gluteal Sets Quad Sets Heel Slides M7 PT-IP Assessment and Plan Start: 11/06/17 12:16 Freq: NEEDED Status: Active Protocol: Document 11/07/17 13:10 GGD (Rec: 11/07/17 16:52 GGD [email or web address]) PT Summary Assessment and Plan Summary Assessment Summary Pt improving with mobility and need decrease assistance with sit to stand. She was able to ambulate short distance with FWW. Goals Bed Mobility Goal Minimal Assistance Transfer Goal Minimal Assistance Front Wheeled Walker Four Wheeled Walker Gait Goal Minimal Assistance Front Wheel Walker Four Wheel Walker Gait Distance 30 Days to Meet Goals 5 Frequency of Treatment Frequency Of Treatment Twice a Day Treatment Plan Physical Therapy Treatment Plan Bed Mobility Training Transfer Training Gait Training Therapeutic Exercise Balance Retraining Discharge Planning Hot or Cold Pack Other Recommendations and Next Treatment progress bed mobility and gait Focus . Recommendations To Nursing Amount of Assist Needed 2 Person Assist Discharge Recommendations PT Discharge Recommendations SNF Rehab
--- NOTE | 2017-11-07 14:52 | PC.NURSE ---
Pt given percolone for pain control which worked well without increasing confusion. H/V drain removed and aquacel dressing replaced. [place] intact and wound edges well approximated. Family present wth pt most of the shift. Eating and drinking well and IV is now saline locked.
[2017-11-07 15:56] VITALS: BP 135/64; PULSE 66; RESP 16; TEMP 36.6; O2SAT 97
[2017-11-07] MEDS: SERTRALINE 50 MG TABLET 100 MG PO (17:01)
[2017-11-07] MEDS: ATORVASTATIN 20 MG TABLET PO (17:01)
--- NOTE | 2017-11-07 19:30 | P.PN_ITS ---
Subjective Date Patient Seen: 11/07/17 Time Patient Seen: 19:25 Interval history: pod 2 I&D and fasciotomy L thigh --drainage of hematoma. doing well. received 2 units postop with appropriate response. feeling better that before surgery Exam Vital Signs (past 8 hours): - 11/07/17 12:00 11/07/17 15:56 Temperature 97.7 F 97.9 F Pulse Rate 63 66 Respiratory Rate 18 16 Blood Pressure 108/45 L 135/64 H Pulse Oximetry 94 97 Oxygen Delivery Method Nasal Cannula Oxygen Flow Rate 0 Narrative Exam Narrative: alert to person/place. mild confusion. daughter reorients patient HEENT NCAT REsp unlabored on RA RRR abd soft MSK: LLE: thigh soft but still more swollen than contralateral--much improved from preop. dsg in place. drain dc'd due to low output. ecchymosis along dependent area thigh and lower leg below knee. all compartments soft and cokmpressible not pain passive stretch. SILT. palp DP. Objective Labs Result Diagrams: 11/07/17 05:42 11/07/17 05:42 Labs: Laboratory Results - last 24 hr 11/07/17 11/07/17 05:42 05:42 WBC 4.9 RBC 2.73 L Hgb 8.9 L Hct 25.4 L MCV 93.0 D MCH 32.6 MCHC 35.0 RDW 16.9 H Plt Count 262 Neut % (Auto) 73.2 Lymph % (Auto) 15.1 L [place] % (Auto) 9.9 Eos % (Auto) 1.3 L Baso % (Auto) 0.5 Neut # (Auto) 3600 Sodium 140 Potassium 3.7 Chloride 104 Carbon Dioxide 30 BUN 7 Creatinine 0.50 L Estimated GFR > 60.0 BUN/Creatinine Ratio 14.0 Glucose 109 Calcium 8.0 L Assessment & Plan Post-op Postoperative Procedures Operation Date: 11/05/17 18:00 Actual Procedures Side Surgeon p Thigh Hematoma Evac & washout Left Vale Shelby MD doing well. cx from OR no growth so far. continue care, WBAT LLE. f/u 10-14 days Time Spent With Patient less than 15 minutes Quality VTE Deep Vein Thrombosis/Pulmonary Embolism Present on Admission: No
[2017-11-07 19:45] VITALS: BP 128/89; PULSE 65; RESP 16; TEMP 36.7; O2SAT 99
[2017-11-08 01:00] VITALS: BP 137/69; PULSE 69; RESP 16; TEMP 36.2; O2SAT 95
[2017-11-08 05:11] VITALS: BP 137/87; PULSE 86; RESP 16; TEMP 36.1; O2SAT 94
[2017-11-08 06:13] LABS: INR 1.1 (0.9-1.3); Prothrombin Time 12.1 SECONDS (10.1-12.7)
[2017-11-08 06:18] LABS: Blood Urea Nitrogen 11 mg/dL (7-17); Calcium 8.3 mg/dL (8.4-10.2); Carbon Dioxide 29 mmol/L (22-32); Chloride 104 mmol/L (98-107); Estimated Glomerular Filt Rate > 60.0 mL/min (>60); Glucose 96 mg/dL (80-110); HEMOLYSIS < 15 (0-50); Potassium 4.2 mmol/L (3.4-5.1); Sodium 139 mmol/L (137-145)
[2017-11-08 08:00] VITALS: BP 130/61; PULSE 88; RESP 16; TEMP 36.5; O2SAT 98
[2017-11-08 08:06] LABS: Add Manual Diff / Slide Review NO; Basophils Percent Auto 0.6 % (0-2); Eosinophils Percent Auto 2.4 % (2-4); Hematocrit 27.7 % (36-46); Hemoglobin 9.6 g/dL (12.0-16.0); Lymphocytes Percent Auto 16.9 % (25-40); Mean Corpuscular HGB Conc 34.6 % (30-36); Mean Corpuscular Hemoglobin 32.3 PG (26-34); Mean Corpuscular Volume 93.5 fL (80-100); Monocytes Percent Auto 7.1 % (3-14); Neutrophils Absolute Auto 3500 /uL (3000-5900); Platelet Count 289 X10^3/uL (150-400); Red Blood Cell Count 2.96 X10^6/uL (4.0-5.2); Red Cell Distribution Width 16.7 % (11.6-14.8); White Blood Cell Count 4.8 X10^3/uL (4.5-11.0)
[2017-11-08] MEDS: SODIUM CHLORIDE 0.9% FLUSH 10 ML IV (08:35)
[2017-11-08] MEDS: DOCUSATE 100 MG CAPSULE PO (08:36)
[2017-11-08] MEDS: ACETAMINOPHEN 325 MG TABLET 650 MG PO (08:36)
--- NOTE | 2017-11-08 08:36 | P.PN_ITS ---
Subjective Date Patient Seen: 11/08/17 Time Patient Seen: 08:33 Interval history: Pt is PD 3 s/p I&D and fasciotomy L thigh --drainage of hematoma by Dr. Shelby. Patietn more alert today. Hx of dementia. No c/o of pain. Exam Vital Signs (past 8 hours): - 11/08/17 01:00 11/08/17 05:11 Temperature 97.1 F L 97.0 F L Pulse Rate 69 86 Respiratory Rate 16 16 Blood Pressure 137/69 H 137/87 H Pulse Oximetry 95 94 Oxygen Delivery Method Nasal Cannula Oxygen Flow Rate 0 Narrative Exam Narrative: Patient in bed. Left thigh dressing clean dry and intact. Minimal swelling left eye. 5/5 left ankle strength. Neurovascular status intact. Objective Labs Result Diagrams: 11/08/17 05:50 11/08/17 05:50 Labs: Laboratory Results - last 24 hr 11/08/17 11/08/17 11/08/17 05:50 05:50 05:50 WBC 4.8 RBC 2.96 L Hgb 9.6 L Hct 27.7 L MCV 93.5 MCH 32.3 MCHC 34.6 RDW 16.7 H Plt Count 289 Neut % (Auto) 73.0 Lymph % (Auto) 16.9 L [place] % (Auto) 7.1 Eos % (Auto) 2.4 Baso % (Auto) 0.6 Neut # (Auto) 3500 PT 12.1 INR 1.1 Sodium 139 Potassium 4.2 Chloride 104 Carbon Dioxide 29 BUN 11 Creatinine 0.50 L Estimated GFR > 60.0 BUN/Creatinine Ratio 22.0 Glucose 96 Calcium 8.3 L Assessment & Plan Post-op Postoperative Procedures Operation Date: 11/05/17 18:00 Actual Procedures Side Surgeon p Thigh Hematoma Evac & washout Left Vale Shelby MD Postop day 3. Continue physical therapy. Patient can be weight-bearing as tolerated left lower extremity. Follow up in orthopedic office in 10-14 days. Discharge when medically stable. Time Spent With Patient less than 15 minutes Quality VTE Deep Vein Thrombosis/Pulmonary Embolism Present on Admission: No
--- NOTE | 2017-11-08 09:06 | CM.DPC ---
DCP: continued: spoke yesterday with Alivia/[facility] after she talked with pt's daughter. Pt now accepted at [facility] when stable for transition to the snf level of care. OT order is obtained as per recommendation of the therapy team. P: [facility] when stable for same. Keep POA daughter Hamida updated.
[2017-11-08] MEDS: OXYCODONE IR 5 MG TABLET PO (10:41)
--- NOTE | 2017-11-08 11:23 | PM.DS.1 ---
History of Present Illness Date Patient Seen: 11/08/17 Time Patient Seen: 10:23 Chief complaint: Hematoma of left thigh Narrative: Patient is an 82-year-old female brought to emergency department due to worsening pain in the left thigh. Daughter provides helpful history. Patient lives in assisted living memory care facility in [place] and was seen at emergency department there a week ago due to pain and swelling in the left thigh. Ultrasound ruled out a DVT. She was started on antibiotic for cellulitis. Her daughter brought her to stay with her in town so she could keep a close eye on her. It in the past 24 hr the pain has gotten much worse. She has not had fevers or chills. She is on warfarin for atrial fibrillation and has a pacemaker for sick sinus syndrome. She denies any falls or other trauma to the leg. Ultrasound exams showed a large 10 cm hematoma within the lateral and anterior thigh. Dr. Shelby was consulted for orthopedic surgery and concerned about potential involving compartment syndrome and taking her to the OR this evening. Patient's INR is therapeutic at 2.6. Daughter states her highest INR has been 3.2. Patient denies any chest pains, dyspnea, fevers or chills. Vitals in the ER okay except mildly hypertensive with normal heart rate, respiration and O2 sat. Patient History Discharge Providers Date of admission: 11/05/17 20:12 Consults: 11/05/17 22:55 Consult to Discharge Planning Routine Comment: Consult to Physical Therapy Evaluate & Treat Comment: Physician Instructions: Evaluate and Treat Consult to Respiratory Therapy Evaluate & Treat Comment: Physician Instructions: Evaluate and treat 11/08/17 09:01 Consult to Occupational Therapy Evaluate & Treat Comment: Physician Instructions: Evaluate and treat Discharge provider: IBAN Bruno Summary Discharge Diagnosis: 1. Left thigh hematoma 2. Evolving compartment syndrome 3. Acute blood loss anemia secondary to 1. 4. Atrial fibrillation 5. Dementia Hospital Course: This is a summary of a 4 day hospitalization for this pleasant 82-year-old female came in with left thigh pain and swelling. She is postop day 3. Status post I and D and fasciotomy of the left thigh with evacuation of approximately 450 cc of blood and clot. The anteromedial vastus was also noted to have necrotic involvement which was removed. Patient received preoperative antibiotics, and also received FFP since her INR was 2.6 as she has been on Coumadin for chronic atrial fibrillation. Postoperatively she also received 2 units of packed red blood cells with the hematocrit responding appropriately. Her pain has been well controlled with oxycodone. She has remained afebrile, normotensive, and heart rates been 60s to 80. Her daughter feels that she is back to her baseline mental state. We will continue to hold her Coumadin at least for the next 30 days and revaluate if needed at that point time. She will be continued on her usual home medications with the exception of Coumadin. She will need to be scheduled for outpatient follow up with Orthopedics in 10-14 days. Status at Discharge Functional status at discharge: uses cane/walker Overall status at discharge: patient is progressing back to baseline Time Spent with Patient Greater than 30 minutes Exam Vital Signs (past 8 hours): - 11/08/17 05:11 11/08/17 08:00 Temperature 97.0 F L 97.7 F Pulse Rate 86 88P Respiratory Rate 16 16 Blood Pressure 137/87 H 130/61 H Pulse Oximetry 94 98 Oxygen Delivery Method Nasal Cannula Oxygen Flow Rate 0 PROCEDURE: US PERIPH VENOUS LOW EXTREM LT INDICATIONS: Pain swelling to left lower extremity TECHNIQUE: Real-time imaging, as well as color and pulse Doppler interrogation, were performed of the lower extremity deep veins from the inguinal ligament to the popliteal fossa. COMPARISON: None. FINDINGS: The deep veins are normally compressible, and free of intraluminal thrombus. Color and pulse Doppler demonstrate normal phasic intraluminal flow. There is normal augmentation response to distal compression maneuver. IMPRESSION: No deep venous thrombosis. Dictated by: Amy Hicks M.D. on 11/05/2017 at 14:19 Approved by: Amy Hicks M.D. on 11/05/2017 at 14:21 ADDENDUM: COMPARISON: Merged With [facility], CR, XR FEMUR LT MIN 2V, 11/05/2017, 12:57. The patient was brought back for additional scanning due to clinical concern for hematoma formation. At the site of medial thigh ecchymosis, no hematoma is identified. Within the lateral and anterior thigh, a large hypoechoic lesion measures at least 10 x 9 cm, demonstrating no internal vascular flow on color Doppler interrogation. Findings would be consistent with a large intramuscular or intermuscular hematoma of uncertain etiology. Dictated by: Tyshawn Hillman M.D. on 11/05/2017 at 15:40 Approved by: Tyshawn Hillman M.D. on 11/05/2017 at 15:43 Narrative Exam Narrative: Patient is a sitting in a chair she is very conversant and only minimally confused. Const General: cooperative, healthy appearing, comfortable, well developed and well groomed Nutritional Appearance: average body habitus Orientation: alert, awake and oriented x3 HENMT Head: normal to inspection, normocephalic and atraumatic Eyes General: appearance normal, both eyes and all related structures Pupils: PERRL Neck Neck: normal visual inspection, trachea midline and supple Other: No JVD or lymphadenopathy Chest Chest: normal inspection of the chest Resp Effort & Inspection: normal respiratory effort and able to speak in complete sentences Auscultation: clear to auscultation bilaterally Cardio Heart Sounds: S1 normal and S2 normal Other: Irregular rhythm. Patient has history of atrial fibrillation GI Inspection: normal to inspection Palpation: soft Auscultation: normal bowel sounds Other: Nontender to palpation Other: Urinary catheter removed. Patient voiding Back/Spine/Pelvis Other: The remarkable Skin General: no rashes or lesions noted, dry skin and warm Neuro General: alert, awake and oriented x3 Cognition: normal cognition Speech: speech normal Gait: gait assisted Method: walker Motor: muscle tone normal throughout Extrem General: no pedal edema Other: Left lower extremity thigh soft but still more swollen contralateral. Dressing in place over surgical incision. Ecchymosis noted along dependent area on thigh and lower leg below knee. All compartments are soft and compressible. Dorsalis pedis pulse present bilaterally equal. Psych Appearance: grossly normal Mood: congruent mood Affect: normal affect Attitude: cooperative Thought Process: normal Thought Content: normal Judgment: judgment good Other: Patient does have a history of depression and dementia but is less confused today. Objective Labs Result Diagrams: 11/08/17 05:50 11/08/17 05:50 Labs: Laboratory Results - last 24 hr 11/08/17 11/08/17 11/08/17 05:50 05:50 05:50 WBC 4.8 RBC 2.96 L Hgb 9.6 L Hct 27.7 L MCV 93.5 MCH 32.3 MCHC 34.6 RDW 16.7 H Plt Count 289 Neut % (Auto) 73.0 Lymph % (Auto) 16.9 L [place] % (Auto) 7.1 Eos % (Auto) 2.4 Baso % (Auto) 0.6 Neut # (Auto) 3500 PT 12.1 INR 1.1 Sodium 139 Potassium 4.2 Chloride 104 Carbon Dioxide 29 BUN 11 Creatinine 0.50 L Estimated GFR > 60.0 BUN/Creatinine Ratio 22.0 Glucose 96 Calcium 8.3 L Discharge Plan Discharge Plan Patient Disposition: SNF Transfer to: [facility] Transportation: Facility vehicle Labs: Patient will need repeat CBC and INR on SaturdayNovember 11 Discharge comment: She will need to follow with Ortho in 10-14 days. I certify the [facility] care is medically necessary on a continuing basis for any conditions for which he/ she received care during this hospitalization.: Yes The receiving facility has agreed to accept transfer and provide medical treatment.: Yes Discharge Health Status Multidrug resistant organism: No MDRO Precautions: [place] Provider Discharge Instructions Diet: Regular Food texture: Regular Activity: Up with assistance Oxygen: Room air Wound Care Report to your healthcare provider any signs of infection, such as:: chills, fever, night sweats, increased pain and unusual drainage Special Rehabilitation Services Reason for rehabilitation: Post-operative therapy and Recovery r/t decondition Rehab type: Physical therapy and Occupational therapy Discharge Data Attending Provider: Eduin Hogan Admit Date/Time: 11/05/17 20:12 Quality VTE Deep Vein Thrombosis/Pulmonary Embolism Present on Admission: No
--- NOTE | 2017-11-08 11:30 | PT.IPTN ---
Current Diagnoses Acute posthemorrhagic anemia (11/05/17) Contusion of left thigh, initial encounter (11/05/17) Surgery Performed Operation Date: 11/05/17 18:00 Actual Procedures p Thigh Hematoma Evac & washout(Left) - Vale Shelby MD Physical Therapy Treatment Note M2 PT-IP Current Condition Start: 11/06/17 12:16 Freq: NEEDED Status: Active Protocol: Document 11/06/17 12:13 DLM (Rec: 11/06/17 12:49 DLM [id number]) Physical Therapy Current Condition Current Condition Evaluation Date 11/06/17 Treatment Diagnosis hematoma left thigh, compartment syndrome, evacuation & fasciotomy Onset Date 11/05/17 Precautions Other Precautions hx of bilateral MICHELLE, left hip has hx of dislocation before it was revised Weight Bearing Status Weight Bearing Status Weight Bear as Tolerated M3 PT-IP Subjective Start: 11/06/17 12:16 Freq: NEEDED Status: Active Protocol: Document 11/08/17 11:30 GGD (Rec: 11/08/17 12:34 GGD [id number]) Subjective Physical Therapy Visit Type Type Treatment Note Visit Start Time 10:55 Visit Stop Time 11:30 Total Visit Minutes 25 Number of AEROLOGIST Visits 3 Physical Therapy Visit Comments Patient Comments Pt state her leg hurts to move . Therapy Pain Assessment Pain When Pain Assessed During Mobility Pain Present Pain Present Pain Reported FLACC Pain Scale Face No particular expression Legs Uneasy, restless, tense Activity Quiet, moves easily Cry No cry (awake or asleep) Consolability Reassurable with touch FLACC Total 2 M4 PT-IP Mobility and Gait Start: 11/06/17 12:16 Freq: NEEDED Status: Active Protocol: Document 11/08/17 11:30 GGD (Rec: 11/08/17 12:34 GGD [id number]) PT-Bed Mobility Assessment Supine to Sit Supine to Sit Contact Guard Assistance 1 Person Assistance Head of Bed Elevated Scooting Scooting to Edge of Bed Contact Guard Assistance PT-Transfer Assessment Sit to and From Stand Sit to and from Stand Contact Guard Assistance 1 Person Assistance Use of Upper Extremities Equipment Transfer Assistive Device Gait Belt Front Wheeled Walker Transfers Transfer Destination Chair Transfer Ability Level of Assist Contact Guard Assistance 1 Person Assistance Gait Assessment Gait Gait Assistance Required: Contact Guard Assist 1 Person Assist Distance (Feet) (feet) 225 Assistive Devices Assistive Device Gait Belt Front Wheeled Walker Gait Deviations General Gait Pattern Antalgic Decreased Stride Length Decreased Feet Clearance Step-to Gait Factors Limiting Gait Function Factors Limiting Gait Function Decreased Activity Tolerance Decreased Strength Limited Range of Motion Pain Poor Balance Poor Safety Awareness M5 PT-IP Objective Assessments Start: 11/06/17 12:16 Freq: NEEDED Status: Active Protocol: Document 11/06/17 12:13 DLM (Rec: 11/06/17 12:49 DLM [id number]) Orientation Orientation/Cognition Level of Alertness Lethargic Orientation Name Birthday Language Function Ability No Deficits Noted Safety Awareness Decreased Safety Awareness Memory Description Short Term Impaired Group Home Impaired Comments she recognizes her daughter, she is not aware of where she is nor why. Pt sleeping at start of visit but able to wake up to stimulation. She closes her eyes often during this visit but stayed awake for activity. Gross Range of Motion Upper Extremity ROM Assessment Within Functional Limits Lower Extremity ROM Assessment Left Impaired Impairments only tolerating very small motions left hip and knee due to pain in her thigh area, pt holding left LE in an internally rotated position and adducted to the opposite LE Strength Upper Extremity Strength Assessment Bilaterally Impaired Shoulder generalized weakness throughout Lower Extremity Strength Assessment Bilaterally Impaired Hip generalized weakness throughout, poor strength left LE associated with pain Comments Strength Comments pt needs assistance to move left LE in bed, has difficulty moving the left LE in standing and has difficulty weight bearing on left LE Coordination Assessment Assessment Coordination Comments unable to fully assess coordination at this time due to her confusion and focus on pain Sensation Assessment Comments Sensation Comments unable to fully assess at this time Muscle Tone Muscle Tone WNL Yes M6 PT-IP Treatment Start: 11/06/17 12:16 Freq: NEEDED Status: Active Protocol: Document 11/08/17 11:30 GGD (Rec: 11/08/17 12:34 GGD [id number]) Physical Therapy Treatment Exercises Exercises Ankle Pumps Gluteal Sets Quad Sets Heel Slides M7 PT-IP Assessment and Plan Start: 11/06/17 12:16 Freq: NEEDED Status: Active Protocol: Document 11/08/17 11:30 GGD (Rec: 11/08/17 12:34 GGD [id number]) PT Summary Assessment and Plan Summary Assessment Summary Pt progressing with mobility. She needed less assist and was able to progress gait. She was mild unsteadiness with gait. Frequency of Treatment Frequency Of Treatment Twice a Day Treatment Plan Physical Therapy Treatment Plan Bed Mobility Training Transfer Training Gait Training Therapeutic Exercise Balance Retraining Discharge Planning Hot or Cold Pack Other Recommendations and Next Treatment progress bed mobility and gait Focus . Recommendations To Nursing Amount of Assist Needed 1 Person Assist Discharge Recommendations PT Discharge Recommendations SNF Rehab
[2017-11-08 12:00] VITALS: BP 117/52; PULSE 92; RESP 16; TEMP 37
--- NOTE | 2017-11-08 12:27 | OT.IP.EVAL ---
Current Diagnoses Acute posthemorrhagic anemia (11/05/17) Contusion of left thigh, initial encounter (11/05/17) Surgery Performed Operation Date: 11/05/17 18:00 Actual Procedures p Thigh Hematoma Evac & washout(Left) - Vale Shelby MD Past Medical History (Last Reviewed 11/06/17 @ 08:52 by Sangeetha Robledo, PT) Postoperative anemia due to acute blood loss (Acute) Hematoma of left thigh (Acute) Atrial fibrillation (Acute) Dementia (Acute) Atrial fibrillation (Acute) Dementia (Acute) Hyperlipidemia (Acute) Sick sinus syndrome (Acute) Surgical History (Last Reviewed 11/06/17 @ 08:52 by Sangeetha Robledo, PT) History of total left hip arthroplasty (Acute) Occupational Therapy Inpatient Evaluation/Re-Eval M1 PT/OT-IP Prior Functional Status Start: 11/06/17 12:16 Freq: NEEDED Status: Active Protocol: Document 11/06/17 12:13 DLM (Rec: 11/06/17 12:49 DLM [id number]) Medical Review Prior Functional Status Medical History Reviewed Yes Diet/Fluid Consistency Regular Communication WFL Mobility and Gait Independent with 4WW Activities of Daily Living and IADL's needing assist with medications Prior Functional Level (Other details) recent decline in gait due to left thigh pain Social History Household Members none Living Arrangements Assisted Living Home Equipment Four Wheel Walker Employment Status Retired Additional Social History Comment Her daughter reports she is at an assisted living facility that has care that can be progressed up to a memory care unit as needed, Her facility is in [place]. Recently she has been staying with her daughter for extra help. Her daughter is retired and available to provide care. 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 Recently she has been staying with her daughter for extra help. Her daughter is retired and available to provide care. Her daughter lives in [place] [id number] OT-IP Current Condition Start: 11/08/17 12:06 Freq: Status: Active Protocol: Document 11/08/17 12:06 [facility] (Rec: 11/08/17 12:27 [facility] [id number]) Occupational Therapy Current Condition Current Condition Evaluation Date 11/08/17 Treatment Diagnosis Anemia, contusion of left thigh Post Operative Precautions Other Precautions hx of bilateral MICHELLE, left hip has hx of dislocation before it was revised Weight Bearing Status Weight Bearing Status Weight Bear as Tolerated M3 OT- IP Subjective and Pain Start: 11/08/17 12:06 Freq: Status: Active Protocol: Document 11/08/17 12:06 [facility] (Rec: 11/08/17 12:27 [facility] [id number]) OT- Subjective Occupational Therapy Visit Type Type Initial Evaluation Visit Start Time 10:05 Visit Stop Time 11:00 Total Visit Minutes 55 Occupational Therapy Visit Comments Patient/Caregiver Goals Pt and daughter would like to go to skilled rehab. OT Pain Assessment Pain When Pain Assessed During Mobility Pain Present Pain Present Pain Reported Location Left Lower Posterior Lateral Thigh Intensity 9 Scale Used Numeric (1 - 10) Description Radiating M4 OT- IP ADL's Start: 11/08/17 12:06 Freq: Status: Active Protocol: Document 11/08/17 12:06 [facility] (Rec: 11/08/17 12:27 [facility] [id number]) OT ADL-Dressing General Eval Upper Body Dressing Ability Standby Assistance Lower Body Dressing Ability Minimal Assistance Areas Needing Assistance Socks Shoes Assistive Devices Dressing Assistive Devices Supervisor Reclamation Comments OT Dressing Comments Due to pain , pt needing assist to help shereen left foot for sock and pant leg. OT ADL-Toileting General Evaluation Toileting Ability Moderate Assistance Areas Needing Assistance Manage Clothing Devices Toileting Assistive Devices Grab Bars Comments OT Toileting Comments Pt needing MOD assist to stand from the toilet. OT ADL-Bathing Bathing Type Bathing Type Shower General Evaluation Bathing Ability Minimal Assistance Areas Needing Assistance Retrieving/Setting Up Items Wash/Dry Upper Body Wash/Dry Lower Extremities Devices Bathing Equipment Shower Chair with Arms Comments OT Bathing Comments Pt needing assist for balance while standing and assist for left foot. M6 OT- IP Functional Cognition Start: 11/08/17 12:06 Freq: Status: Active Protocol: Document 11/08/17 12:06 [facility] (Rec: 11/08/17 12:27 [facility] [email or web address]) Cognitive Factors Limiting Selfcare Function Cognitive Ability Level of Alertness Alert Confusional State Patient Orientation Name Attention Span Ability Capable of Focused Attention Unable to Sustain Attention Ability to Follow Commands Able to Follow One Step Commands Able to Follow One Step Commands with Increased Time Able to Follow One Step Commands with Repetition Memory Description Short Term Impaired Safety Awareness Underestimates Need for Assistance Problem Solving Ability Unable to Identify Errors Needs Assist to Identify Solutions Cognitive Comments Cognitive Assessment Comments Pt needs assist for sequncing of tasks. OT- Vision and Hearing OT- Hearing Assessment OT- Hearing Assessment WFL M7 OT- IP Mobility and Balance Start: 11/08/17 12:06 Freq: Status: Active Protocol: Document 11/08/17 12:06 [facility] (Rec: 11/08/17 12:27 [facility] [email or web address]) OT- Bed Mobility Assessment Supine to Sit Supine to Sit Assist Minimal Assistance Sit to Supine Sit to Supine Assist Minimal Assistance OT-Transfer Assessment Sit to and From Stand Sit to and from Stand Minimal Assistance Moderate Assistance Transfers Transfer Ability Minimal Assistance Technique Transfer Destination Bed Shower Stall Toilet Devices Transfer Assistive Devices Gait Belt Front Wheeled Walker Comments Mobility Comments Pt needing more assist from lower surfaces. VC to hand placecment to push up from the bed to stand. OT- Balance Assessment Sitting Balance and Reactions Static Sitting Balance Ability Normal Dynamic Sitting Balance Ability Good Standing Balance and Reactions Static Standing Balance Ability Fair Dynamic Standing Balance Ability Poor M8 OT- IP Objective Assessments Start: 11/08/17 12:06 Freq: Status: Active Protocol: Document 11/08/17 12:06 [facility] (Rec: 11/08/17 12:27 [facility] [id number]) OT Gross Range of Motion Upper Extremity Range of Motion ROM Impairments WFL OT- Coordination Assessment Comments Coordination Comments Arthritic changes in hands. OT-Muscle Tone Assessment Muscle Tone WNL Yes M9 OT- IP Assessment and Plan Start: 11/08/17 12:06 Freq: Status: Active Protocol: Document 11/08/17 12:06 [facility] (Rec: 11/08/17 12:27 [facility] [email or web address]) OT Summary Assessment and Plan Potential Rehabilitation Potential Good Analytic Complexity at Evaluation Low Summary OT Impairments Pain Balance Functional Cognition Functional Mobility Bathing Shower Transfers Progress Towards Goals Progressing Toward Goals Assessment Summary Pt main barrier is pain, activity tolerance, decreased STM and safety awareness and will benefit from skilled rehab. Goals Dressing Goal Standby Assistance Toileting Goal Standby Assistance Bathing Goal Standby Assistance Toilet Transfer Goal Independent Shower Transfer Goal Contact Guard Assistance Patient/Caregiver Education Goal Caregiver Independent Assisting Patient Days to Meet Goals 3 Frequency of Treatment Frequency Of Treatment Once a Day Treatment Plan OT Treatment Plan ADL Training Functional Cognition Training Functional Mobility Patient/Family Education Discharge Planning Discharge Recommendations OT Discharge Recommendations SNF Rehab
--- NOTE | 2017-11-08 13:00 | PC.NURSE ---
Pt alert, oriented to self date, following commands, is forgetful at times. Pt up ambulating in esparza with therapy and showered. 5mg oxycodone given for LLE pain.Daughter at bedside.
--- NOTE | 2017-11-08 13:14 | CM.DPC ---
DCP: continued: Hospitalist [address] saw pt and her POA daughter this morning and has ok'd her for d/c today to [facility]. Completed orders received about 1215 and were faxed to [facility] administrative fax. Spoke with [facility] Pati/business office and DNS Iva, both on as admissions team today. Iva agreed to have staff pick pt up via w/c at 1330 today. PASRR completed and faxed to [facility]. Orders and PASRR to snf packet. Checked in with pt and CAMPBELL Mei. Pt was up in chair, laughing and conversing with daughter and staff. Both state they feel comfortable with the d/c plan for today. [facility]: 1330. GREGORIO Calvin is calling report.
== END 2017-11-08 14:03 | DRG 501 ==
LOC: ED 20:06 → AC 20:13
PROVIDERS: Internal Medicine; Nurse Practitioner Acute Care; Orthopaedic Surgery Foot and Ankle Surgery; Admitting Provider Internal Medicine; Emergency Provider Nurse Practitioner Family; Visit Provider Internal Medicine
PROC: 0J9C3ZZ Drainage of Pelvic Region Subcutaneous Tissue and Fascia, Percutaneous Approach (ICD-10-PCS; CPT 10180; principal; 2017-11-05 18:00)
DX: M79.A22 Nontraumatic compartment syndrome of left lower extremity (principal); L03.116 Cellulitis of left lower limb; D62 Acute posthemorrhagic anemia; I96 Gangrene, not elsewhere classified; M79.81 Nontraumatic hematoma of soft tissue; T45.515A Adverse effect of anticoagulants, initial encounter; I49.5 Sick sinus syndrome; Z95.0 Presence of cardiac pacemaker; I48.2 Chronic atrial fibrillation; Z79.01 Long term (current) use of anticoagulants; E78.5 Hyperlipidemia, unspecified; F03.90 Unspecified dementia, unspecified severity, without behavioral disturbance, psychotic disturbance, mood disturbance, and anxiety
CPT/HCPCS: 36415; 36430; 73552; 80048; 80053; 82550; 83605; 85014; 85018; 85025; 85610; 86850; 86900; 86901; 86927; 87070; 87075; 87205; 93005; 93971; 94760; 96365; 96375; 97110; 97116; 97163; 97165; 97530; 97535; 99283; 99284; P9016; J0690; J1170; J2405; J2704; J3010; J3430

== ENCOUNTER → 2017-11-11 08:59 | Outpatient (REF) | payer MEDICARE, OTHER, SELFPAY | LOC: LAB 08:59 | PROVIDERS: Visit Provider Internal Medicine | DX: D64.9 Anemia, unspecified (principal); I48.91 Unspecified atrial fibrillation ==